=== PATIENT | male | born 2000 | race Caucasian/White ===

== ENCOUNTER 2021-01-11 11:25 | Inpatient (IN) ==
[2021-01-11 12:10] LABS: Hematocrit (blood only) 38.5 % (42-52); Hemoglobin 13.5 g/dL (14.0-18.0); Immature Granulocytes % (auto) 0.5 %; Lymphocytes # (auto) 0.56 K/uL (1.2-3.4); Mean Corpuscular Hemoglobin 30.5 pg (25-34); Mean Corpuscular Hgb Conc 35.1 g/dL (32-36); Mean Corpuscular Volume 87.1 fL (80-100); Monocytes # (auto) 0.46 K/uL (0.11-0.59); Monocytes % (auto) 2.5 %; Neutrophils # (auto) 17.42 K/uL (1.4-6.5); Platelet Count 279 K/uL (130-400); RDW Coefficient of Variation 11.9 % (11.5-14.5); RDW Standard Deviation 38.4 fL (36.4-46.3); Red Blood Count 4.42 M/uL (4.7-6.1); White Blood Count 18.54 K/uL (4.8-10.8)
[2021-01-11 12:32] LABS: Albumin Globulin Ratio 0.7 (0.9-2); Albumin Level 3.6 gm/dl (3.4-5.0); BUN Creatinine Ratio 15.3 (10-20); Calcium 12.4 mg/dl (8.5-10.1); Creatinine Clr Calc Pharmacy 110.5 ml/min; Est GFR (Non-African American) 95.8 ml/min; Globulin 5.5 gm/dl (2.5-4.0); Potassium 4.5 mmol/L (3.5-5.1); Total Protein 9.1 gm/dl (6.4-8.2)
--- NOTE | 2021-01-11 12:32 | XRay Report ---
XR chest 1V portable HISTORY: Fever COMPARISON: None. FINDINGS: No pneumothorax or no pleural effusions. The cardiac silhouette is top normal in size. Ther e are patchy bilateral mid to lower lung zones densities. IMPRESSION: Patchy bilateral mid to lower lung zone densities likely representing a viral pneumonia. ACT 112: Negative or not required by law. Electronically signed by: Tera Lara M.D. 01/11/2021 12:30 PM
[2021-01-11] MEDS ORDERED: SODIUM CHLORIDE 0.9% 500 ML IV ONE (12:37)
[2021-01-11] MEDS ORDERED: ALBUT/IPRATROP 3MG/0.5MG NEB 3 ML VIAL NEB STA (12:37)
[2021-01-11] MEDS ORDERED: dexAMETHasone 6 MG in SYRINGE 0 ML IV ONE (12:37)
[2021-01-11] MEDS ORDERED: SODIUM CHLORIDE 0.9% 1000ML 1,000 ML IV SCH (12:45)
[2021-01-11] MEDS ORDERED: DEXAMETHASONE SOD INJ 4 MG/ML VIAL ONE (13:09)
[2021-01-11] MEDS ORDERED: DEXAMETHASONE SOD INJ 4 MG/ML VIAL IV STA (13:10)
[2021-01-11] MEDS ORDERED: PIPERACILL/TAZOBAC CONSULT ACTIVE PRN (14:12)
[2021-01-11] MEDS ORDERED: ACETAMINOPHEN 1,000 MG/100 ML VIAL IV STA (14:12)
[2021-01-11] MEDS ORDERED: PIPERACILLIN/TAZOBACTAM 4.5 GM/120 ML BAG IV ONE (14:12)
--- NOTE | 2021-01-11 15:21 | Emergency Department Note ---
History of Present Illness General Chief complaint: Fever Stated complaint: NAUSEA VOMITING Source: patient and RN notes reviewed Mode of arrival: ambulatory Limitations: no limitations History of Present Illness Provider complaint: Nausea and vomiting, cough This patient is a 20-year-old male who presents to the emergency department with complaints of subjective fevers, sweats, cough and shortness of breath. Patient admits to vomiting and diarrhea for the last 24 hours. He denies any other symptoms. He denies any other sick contacts in the home. He states he lives with his mother, father and sister, none of whom are ill. He did not receive a Covid vaccine. He denies any recent travel although his mother states he does go to work. He denies any blood in the emesis or stools. Patient denies any pain at this time. Home Medications Medication Instructions Recorded Confirmed Type No Known Home Medications 01/11/21 01/11/21 History Allergies Allergy/AdvReac Type Severity Reaction Status Date / Time codeine Allergy Unknown Unknown Unverified 01/11/21 13:30 Past Med/Surg History Medical History Patient denies medical problems Family History Grandmother Thyroid disease Mom thinks she may have had some parathyroid issue as well but can't remember Other Dyslipidemia Hypertension Social History Smoking Status: Never smoker Tobacco Type: E-cigarettes / Vaping Cigarettes Per Day: tried for a few months and quit- quit 4-5 months ago (~Aug 2020); Hx Alcohol Use: No Hx Substance Use: No Preferred Language: Greek Communication Ability: Effective 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 and A total of 10 systems reviewed and were otherwise negative Physical Exam Vital Signs Vital Signs - 24 hr 01/11/21 11:31 01/11/21 11:46 01/11/21 11:50 Temperature 37.7 C H Temperature Source Skin Pulse Rate 136 H 121 H 117 H Pulse Rate [Right Finger] Pulse Rate from SpO2 Sensor 119 H 115 H Pulse Rhythm Respiratory Rate 24 Respiratory Effort / Characteristics Non-Labored Spontaneous Respiratory Depth Normal Respiratory Pattern Regular Blood Pressure 136/63 Blood Pressure Mean 87 Pulse Oximetry 83 L 91 92 Oxygen Delivery Method Room Air Oxygen Flow Rate Sepsis Recent Fever Within 48 Hours No Sepsis New/Unexplained Change in Mental Status N/A Sepsis Action Taken by Nursing No Action Required 01/11/21 11:59 01/11/21 12:00 01/11/21 12:03 Temperature Temperature Source Pulse Rate 110 H 117 H 111 H Pulse Rate [Right Finger] Pulse Rate from SpO2 Sensor 111 H 117 H Pulse Rhythm Regular Respiratory Rate 20 Respiratory Effort / Characteristics Respiratory Depth Respiratory Pattern Blood Pressure 146/94 H 149/89 H Blood Pressure Mean 111 109 Pulse Oximetry 96 97 93 Oxygen Delivery Method Nasal Cannula Oxygen Flow Rate 2 Sepsis Recent Fever Within 48 Hours Sepsis New/Unexplained Change in Mental Status Sepsis Action Taken by Nursing 01/11/21 12:10 01/11/21 12:20 01/11/21 12:30 Temperature Temperature Source Pulse Rate 107 H 105 H 100 H Pulse Rate [Right Finger] Pulse Rate from SpO2 Sensor 106 H 105 H 96 H Pulse Rhythm Respiratory Rate Respiratory Effort / Characteristics Respiratory Depth Respiratory Pattern Blood Pressure 130/81 Blood Pressure Mean 97 Pulse Oximetry 97 97 97 Oxygen Delivery Method Oxygen Flow Rate Sepsis Recent Fever Within 48 Hours Sepsis New/Unexplained Change in Mental Status Sepsis Action Taken by Nursing 01/11/21 12:40 01/11/21 12:50 01/11/21 12:59 Temperature Temperature Source Pulse Rate 96 H 102 H Pulse Rate [Right Finger] 116 H Pulse Rate from SpO2 Sensor 97 H 100 H Pulse Rhythm Respiratory Rate 22 Respiratory Effort / Characteristics Non-Labored Spontaneous Respiratory Depth Respiratory Pattern Blood Pressure Blood Pressure Mean Pulse Oximetry 98 98 97 Oxygen Delivery Method Nasal Cannula Oxygen Flow Rate 3 Sepsis Recent Fever Within 48 Hours Sepsis New/Unexplained Change in Mental Status Sepsis Action Taken by Nursing 01/11/21 13:00 01/11/21 13:10 01/11/21 13:20 Temperature Temperature Source Pulse Rate 117 H 113 H 120 H Pulse Rate [Right Finger] Pulse Rate from SpO2 Sensor 120 H 115 H 120 H Pulse Rhythm Respiratory Rate 25 H Respiratory Effort / Characteristics Respiratory Depth Respiratory Pattern Blood Pressure 109/80 Blood Pressure Mean 89 Pulse Oximetry 94 96 93 Oxygen Delivery Method Nasal Cannula Oxygen Flow Rate 3 Sepsis Recent Fever Within 48 Hours Sepsis New/Unexplained Change in Mental Status Sepsis Action Taken by Nursing 01/11/21 13:30 01/11/21 13:40 01/11/21 13:50 Temperature Temperature Source Pulse Rate 121 H 129 H 118 H Pulse Rate [Right Finger] Pulse Rate from SpO2 Sensor 123 H 123 H 118 H Pulse Rhythm Respiratory Rate 25 H 19 50 H Respiratory Effort / Characteristics Respiratory Depth Respiratory Pattern Blood Pressure Blood Pressure Mean Pulse Oximetry 90 88 L Oxygen Delivery Method Nasal Cannula Oxygen Flow Rate 3 Sepsis Recent Fever Within 48 Hours Sepsis New/Unexplained Change in Mental Status Sepsis Action Taken by Nursing 01/11/21 14:00 01/11/21 14:10 01/11/21 14:20 Temperature Temperature Source Pulse Rate 111 H 112 H 113 H Pulse Rate [Right Finger] Pulse Rate from SpO2 Sensor 112 H 112 H 112 H Pulse Rhythm Respiratory Rate 44 H Respiratory Effort / Characteristics Respiratory Depth Respiratory Pattern Blood Pressure 129/64 Blood Pressure Mean 85 Pulse Oximetry 93 93 94 Oxygen Delivery Method Oxygen Flow Rate Sepsis Recent Fever Within 48 Hours Sepsis New/Unexplained Change in Mental Status Sepsis Action Taken by Nursing 01/11/21 14:30 01/11/21 14:40 01/11/21 14:50 Temperature Temperature Source Pulse Rate 112 H 114 H 111 H Pulse Rate [Right Finger] Pulse Rate from SpO2 Sensor 114 H 115 H 112 H Pulse Rhythm Respiratory Rate 25 H Respiratory Effort / Characteristics Respiratory Depth Respiratory Pattern Blood Pressure 115/70 Blood Pressure Mean 85 Pulse Oximetry 94 91 93 Oxygen Delivery Method Oxygen Flow Rate Sepsis Recent Fever Within 48 Hours Sepsis New/Unexplained Change in Mental Status Sepsis Action Taken by Nursing 01/11/21 15:00 01/11/21 15:10 01/11/21 15:20 Temperature Temperature Source Pulse Rate 107 H 111 H 106 H Pulse Rate [Right Finger] Pulse Rate from SpO2 Sensor 107 H 111 H 105 H Pulse Rhythm Respiratory Rate Respiratory Effort / Characteristics Respiratory Depth Respiratory Pattern Blood Pressure 139/83 Blood Pressure Mean 101 Pulse Oximetry 94 93 94 Oxygen Delivery Method Oxygen Flow Rate Sepsis Recent Fever Within 48 Hours Sepsis New/Unexplained Change in Mental Status Sepsis Action Taken by Nursing 01/11/21 15:30 01/11/21 15:40 01/11/21 15:50 Temperature Temperature Source Pulse Rate 105 H 100 H 97 H Pulse Rate [Right Finger] Pulse Rate from SpO2 Sensor 105 H 98 H 98 H Pulse Rhythm Respiratory Rate 25 H Respiratory Effort / Characteristics Respiratory Depth Respiratory Pattern Blood Pressure 119/81 Blood Pressure Mean 93 Pulse Oximetry 94 94 94 Oxygen Delivery Method Oxygen Flow Rate Sepsis Recent Fever Within 48 Hours Sepsis New/Unexplained Change in Mental Status Sepsis Action Taken by Nursing Vital signs reviewed. General: Well-appearing 20-year-old male, in no significant distress. HEENT: No scleral icterus, PERRLA, neck supple. Atraumatic. On nasal cannula oxygen Cardiovascular: Regular rate and rhythm, no extra sounds. Pulmonary: Coarse breath sounds bilaterally, slightly increased work of breathing. Abdomen: Soft, nontender, nondistended, positive bowel sounds. Musculoskeletal: Atraumatic, no peripheral edema. Neurologic: Patient awake alert and oriented x 3 Skin: Warm, dry, no rash Course Administered Medications Discontinued Medications Acetaminophen (Acetaminophen 325 Mg Tab) 650 mg PO Q4H PRN PRN Reason: Pain or Fever Stop: 02/10/21 19:59 Last Admin: 01/12/21 11:18 Dose: 650 mg Documented by: [id number] Albuterol (Albut/Ipratrop 3mg/0.5mg Neb 3 Ml Vial) 3 ml NEB NOW STA Stop: 01/11/21 12:38 Last Admin: 01/11/21 12:55 Dose: 3 ml Documented by: [id number] Albuterol (Albuterol 0.083% Nebu Soln 3 Ml Vial) 2.5 mg NEB Q6R [facility] Stop: 02/11/21 00:59 Last Admin: 01/13/21 01:45 Dose: Not Given Documented by: [id number] Admin: 01/12/21 20:08 Dose: 2.5 mg Documented by: [id number] Admin: 01/12/21 13:21 Dose: 2.5 mg Documented by: [id number] Admin: 01/12/21 07:28 Dose: 2.5 mg Documented by: [id number] Admin: 01/12/21 00:01 Dose: Not Given Documented by: [id number] Albuterol (Albuterol Hfa 8 Gm Inhaler) 2 puffs INH Q6 PRN PRN Reason: Dyspnea Stop: 02/10/21 19:59 Last Admin: 01/12/21 00:00 Dose: 2 puffs Documented by: [id number] Azithromycin (Azithromycin 250 Mg Tab) 500 mg PO NOW ONE Stop: 01/11/21 17:32 Last Admin: 01/11/21 22:02 Dose: 500 mg Documented by: [id number] Azithromycin (Azithromycin 250 Mg Tab) 250 mg PO QAM [facility]; Protocol Stop: 01/19/21 08:59 Last Admin: 01/12/21 08:19 Dose: 250 mg Documented by: [id number] Dexamethasone (Dexamethasone Sod Inj 4 Mg/Ml Vial) Confirm Administered Dose 8 mg .ROUTE .STK-MED ONE Stop: 01/11/21 13:10 Last Admin: 01/11/21 13:16 Dose: Not Given Documented by: [id number] Dexamethasone (Dexamethasone Sod Inj 4 Mg/Ml Vial) 6 mg IV NOW STA Stop: 01/11/21 13:11 Last Admin: 01/11/21 13:15 Dose: 6 mg Documented by: [id number] Fentanyl Citrate (Fentanyl Bolus From Bag) 50 mcg IV Q60M PRN PRN Reason: Pain or Agitation Stop: 01/27/21 01:24 Last Admin: 01/13/21 02:10 Dose: 50 mcg Documented by: [id number] Furosemide (Furosemide 40 Mg/4 Ml Vial) 20 mg IV ONE ONE Stop: 01/13/21 04:16 Last Admin: 01/13/21 05:49 Dose: 20 mg Documented by: [id number] Heparin Sodium (Porcine) (Heparin Sod 5,000 Unit/0.5 Ml Vial) 5,000 units SQ Q12 [facility] Stop: 02/10/21 20:59 Last Admin: 01/13/21 08:18 Dose: 5,000 units Documented by: [id number] Admin: 01/12/21 21:55 Dose: Not Given Documented by: [id number] Admin: 01/12/21 08:19 Dose: 5,000 units Documented by: [id number] Admin: 01/11/21 22:02 Dose: 5,000 units Documented by: [id number] Sodium Chloride (Nss) 500 mls @ 999 mls/hr IV .Q31M ONE Stop: 01/11/21 13:07 Last Infusion: 01/11/21 13:21 Dose: 999 mls/hr Documented by: [id number] Admin: 01/11/21 12:45 Dose: 999 mls/hr Documented by: [id number] Sodium Chloride (Nss 1000ml) 1,000 mls @ 125 mls/hr IV .Q8H [facility] Stop: 02/10/21 12:44 Last Infusion: 01/12/21 05:20 Dose: 0 mls/hr Documented by: [id number] Admin: 01/11/21 13:15 Dose: 125 mls/hr Documented by: [id number] Acetaminophen (Ofirmev) 1,000 mg in 100 mls @ 400 mls/hr IV NOW STA Stop: 01/11/21 14:26 Last Infusion: 01/11/21 14:52 Dose: 400 mls/hr Documented by: [id number] Admin: 01/11/21 14:37 Dose: 400 mls/hr Documented by: [id number] Piperacillin Sod/Tazobactam Sod (Zosyn) 4.5 gm in 120 mls @ 240 mls/hr IV NOW ONE Stop: 01/11/21 14:41 Last Infusion: 01/11/21 15:37 Dose: 0 mls/hr Documented by: [id number] Admin: 01/11/21 14:55 Dose: 240 mls/hr Documented by: [id number] Parenteral Electrolytes (Normosol-R) 500 mls @ 999 mls/hr IV .Q31M ONE Stop: 01/11/21 18:00 Last Infusion: 01/12/21 05:20 Dose: 0 mls/hr Documented by: [id number] Admin: 01/11/21 20:10 Dose: 999 mls/hr Documented by: [id number] Ceftriaxone Sodium (Rocephin) 1,000 mg in 50 mls @ 100 mls/hr IV NOW STA Stop: 01/11/21 17:38 Last Admin: 01/12/21 07:11 Dose: Not Given Documented by: [id number] Parenteral Electrolytes (Normosol-R) 1,000 mls @ 125 mls/hr IV .Q8H [facility] Stop: 02/10/21 18:13 Last Infusion: 01/13/21 06:53 Dose: 0 mls/hr Documented by: [id number] Infusion: 01/13/21 05:03 Dose: 0 mls/hr Documented by: [id number] Admin: 01/13/21 01:56 Dose: 125 mls/hr Documented by: [id number] Infusion: 01/13/21 01:56 Dose: 125 mls/hr Documented by: [id number] Admin: 01/12/21 21:42 Dose: 125 mls/hr Documented by: [id number] Infusion: 01/12/21 21:31 Dose: 125 mls/hr Documented by: [id number] Admin: 01/12/21 13:31 Dose: 125 mls/hr Documented by: [id number] Infusion: 01/12/21 13:25 Dose: 125 mls/hr Documented by: [id number] Admin: 01/12/21 05:25 Dose: 125 mls/hr Documented by: [id number] Infusion: 01/12/21 05:25 Dose: 125 mls/hr Documented by: [id number] Admin: 01/11/21 22:01 Dose: 125 mls/hr Documented by: [id number] Piperacillin Sod/Tazobactam (Sod 3.375 gm/ Dextrose) 115 mls @ 28.75 mls/hr IV Q8H [facility]; Protocol Stop: 01/18/21 20:59 Last Infusion: 01/13/21 16:21 Dose: 0 mls/hr Documented by: [id number] Admin: 01/13/21 12:04 Dose: 28.8 mls/hr Documented by: [id number] Infusion: 01/13/21 11:04 Dose: 0 mls/hr Documented by: [id number] Admin: 01/13/21 06:43 Dose: 28.8 mls/hr Documented by: [id number] Infusion: 01/13/21 01:57 Dose: 0 mls/hr Documented by: [id number] Admin: 01/12/21 21:43 Dose: 28.8 mls/hr Documented by: [id number] Infusion: 01/12/21 17:14 Dose: 0 mls/hr Documented by: [id number] Admin: 01/12/21 13:30 Dose: 28.8 mls/hr Documented by: [id number] Infusion: 01/12/21 09:09 Dose: 0 mls/hr Documented by: [id number] Admin: 01/12/21 05:17 Dose: 28.8 mls/hr Documented by: [id number] Infusion: 01/12/21 02:29 Dose: 0 mls/hr Documented by: [id number] Admin: 01/11/21 22:01 Dose: 28.8 mls/hr Documented by: [id number] Potassium Phosphate 21 mmol/ (Sodium Chloride) 507 mls @ 88 mls/hr IV ONE ONE Stop: 01/12/21 15:45 Last Infusion: 01/12/21 17:54 Dose: 0 mls/hr Documented by: [id number] Admin: 01/12/21 11:06 Dose: 88 mls/hr Documented by: [id number] Levofloxacin/Dextrose (Levaquin/D5w) 750 mg in 150 mls @ 100 mls/hr IV Q24H [facility]; Protocol Stop: 01/19/21 17:59 Last Infusion: 01/12/21 19:49 Dose: 0 mls/hr Documented by: [id number] Admin: 01/12/21 17:57 Dose: 100 mls/hr Documented by: [id number] Cisatracurium Besylate 40 mg/ (Sodium Chloride) 100 mls @ 0 mls/hr IV .Q0M [facility]; Protocol Stop: 02/12/21 01:29 Last Titration: 01/13/21 10:35 Dose: 0 mcg/kg/min, 0 mls/hr Documented by: [id number] Titration: 01/13/21 02:29 Dose: 0 mcg/kg/min, 0 mls/hr Documented by: [id number] Admin: 01/13/21 01:56 Dose: 1 mcg/kg/min, 11 mls/hr Documented by: [id number] Cosigned by: [id number] Propofol (Diprivan) 1,000 mg in 100 mls @ 14.004 mls/hr IV .Q7H9M [facility]; Protocol Stop: 01/13/21 11:55 Last Titration: 01/13/21 12:04 Dose: 0 mcg/kg/min, 0 mls/hr Documented by: [id number] Admin: 01/13/21 10:35 Dose: 30 mcg/kg/min, 14 mls/hr Documented by: [id number] Cosigned by: [id number] Titration: 01/13/21 07:27 Dose: 40 mcg/kg/min, 18.7 mls/hr Documented by: [id number] Cosigned by: [id number] Titration: 01/13/21 07:07 Dose: 40 mcg/kg/min, 18.7 mls/hr Documented by: [id number] Cosigned by: [id number] Titration: 01/13/21 02:29 Dose: 40 mcg/kg/min, 18.7 mls/hr Documented by: [id number] Titration: 01/13/21 02:01 Dose: 30 mcg/kg/min, 14 mls/hr Documented by: [id number] Admin: 01/13/21 01:57 Dose: 20 mcg/kg/min, 9.3 mls/hr Documented by: [id number] Cosigned by: [id number] Fentanyl Citrate (Fentanyl Drip) 1,250 mcg in 250 mls @ 30 mls/hr IV .Q8H20M [facility]; Protocol Stop: 01/27/21 01:29 Last Admin: 01/13/21 17:18 Dose: Not Given Documented by: [id number] Admin: 01/13/21 13:27 Dose: 150 mcg/hr, 30 mls/hr Documented by: [id number] Cosigned by: [id number] Titration: 01/13/21 13:27 Dose: 100 mcg/hr, 20 mls/hr Documented by: [id number] Cosigned by: [id number] Titration: 01/13/21 07:07 Dose: 100 mcg/hr, 20 mls/hr Documented by: [id number] Cosigned by: [id number] Titration: 01/13/21 02:29 Dose: 100 mcg/hr, 20 mls/hr Documented by: [id number] Cosigned by: [id number] Admin: 01/13/21 02:01 Dose: 25 mcg/hr, 5 mls/hr Documented by: [id number] Cosigned by: [id number] Dexamethasone 10 mg/ Syringe 2.5 mls @ 1 mls/min IV ONE ONE Stop: 01/13/21 02:32 Last Admin: 01/13/21 02:38 Dose: 1 mls/min Documented by: [id number] Dexamethasone 6 mg/ Syringe 1.5 mls @ 1 mls/min IV DAILY [facility] Stop: 01/24/21 08:59 Last Admin: 01/13/21 08:18 Dose: 1 mls/min Documented by: [id number] Tocilizumab 400 mg/Tocilizumab 200 mg/ Sodium Chloride 100 mls @ 100 mls/hr IV NOW ONE Stop: 01/13/21 03:59 Last Infusion: 01/13/21 04:42 Dose: 0 mls/hr Documented by: [id number] Admin: 01/13/21 03:30 Dose: 100 mls/hr Documented by: [id number] Magnesium Sulfate/Dextrose (Magnesium Sulfate / D5w) 1 gm in 100 mls @ 50 mls/hr IV Q2H [facility] Stop: 01/13/21 07:49 Last Infusion: 01/13/21 10:20 Dose: 0 mls/hr Documented by: [id number] Admin: 01/13/21 08:17 Dose: 50 mls/hr Documented by: [id number] Infusion: 01/13/21 07:26 Dose: 50 mls/hr Documented by: [id number] Admin: 01/13/21 05:26 Dose: 50 mls/hr Documented by: [id number] Midazolam HCl (Versed) 125 mg in 250 mls @ 6 mls/hr IV .[id number] [facility]; Protocol Stop: 02/12/21 11:59 Last Titration: 01/13/21 13:27 Dose: 3 mg/hr, 6 mls/hr Documented by: [id number] Cosigned by: [id number] Admin: 01/13/21 12:03 Dose: 1 mg/hr, 2 mls/hr Documented by: [id number] Cosigned by: [id number] Ioversol (Optiray 320 100ml) 93 ml IV ONCE ONE Stop: 01/12/21 16:15 Last Admin: 01/12/21 16:14 Dose: 93 ml Documented by: [id number] Lactobacillus Acidoph/Casei/Rhamnos (Advanced Probiotic 1250 Mg Capsule) 2 cap PO DAILY [facility] Stop: 02/11/21 08:59 Last Admin: 01/13/21 08:19 Dose: 2 cap Documented by: [id number] Admin: 01/12/21 08:19 Dose: 2 cap Documented by: [id number] Ondansetron HCl (Ondansetron Inj 2 Mg/Ml 2 Ml Vial) 4 mg IV Q6H PRN PRN Reason: Nausea Stop: 02/10/21 19:59 Last Admin: 01/12/21 20:15 Dose: 4 mg Documented by: [id number] Admin: 01/12/21 11:11 Dose: 4 mg Documented by: [id number] Prednisone (Prednisone 20 Mg Tab) 80 mg PO DAILY [facility] Stop: 01/15/21 09:01 Last Admin: 01/13/21 09:43 Dose: Not Given Documented by: [id number] Propofol (Propofol Bolus From Bag) 20 mg IV Q5M PRN PRN Reason: Sedation Stop: 01/16/21 01:24 Last Admin: 01/13/21 02:10 Dose: 20 mg Documented by: [id number] Cosigned by: [id number] Propofol (Propofol Iv Emulsion 10 Mg/Ml 100 Ml Vial) Confirm Administered Dose 1,000 mg IV .STK-MED ONE Stop: 01/13/21 01:30 Last Admin: 01/13/21 01:58 Dose: Not Given Documented by: [id number] Vitamin D (Cholecalciferol 1,000 Units 25 Mcg Tab) 1,000 units PO QAM [facility] Stop: 02/12/21 08:59 Last Admin: 01/13/21 08:19 Dose: 1,000 units Documented by: [id number] Medical Decision Making Differential Diagnosis Reactive airway disease, pneumonia, pneumothorax, COPD, CHF, infections, cardiac ischemia, pulmonary embolism, musculoskeletal, gastrointestinal, as well as other pathologies. Medical Records Attestation: I reviewed the patient's medical records. Home Medications Current Medication List: was personally reviewed by me Laboratory Data Attestation: I reviewed the patient's lab results. Result diagrams: 01/13/21 03:04 01/13/21 03:04 Lab Results 01/11/21 01/11/21 01/11/21 Range/Units 11:58 11:58 13:12 WBC 18.54 H (4.8-10.8) K/uL RBC 4.42 L (4.7-6.1) M/uL Hgb 13.5 L (14.0-18.0) g/dL Hct 38.5 L (42-52) % MCV 87.1 (80-100) fL MCH 30.5 (25-34) pg MCHC 35.1 (32-36) g/dL RDW Std Deviation 38.4 (36.4-46.3) fL RDW Coeff of Vidhya 11.9 (11.5-14.5) % Plt Count 279 (130-400) K/uL MPV 10.0 (7.4-10.4) fL Immature Gran % (Auto) 0.5 % Neut % (Auto) 94.0 % Lymph % (Auto) 3.0 % [place] % (Auto) 2.5 % Eos % (Auto) 0.0 % Baso % (Auto) 0.0 % Neut # (Auto) 17.42 H (1.4-6.5) K/uL Lymph # (Auto) 0.56 L (1.2-3.4) K/uL [place] # (Auto) 0.46 (0.11-0.59) K/uL Eos # (Auto) 0.00 (0-0.5) K/uL Baso # (Auto) 0.00 (0-0.2) K/uL Immature Gran # (Auto) 0.10 H (0.00-0.02) K/uL Sodium 136 (136-145) mmol/L Potassium 4.5 (3.5-5.1) mmol/L Chloride 100 (98-107) mmol/L Carbon Dioxide 30 (21-32) mmol/L Anion Gap 6.0 (3-11) BUN 17 (7-18) mg/dl Creatinine 1.11 (0.6-1.4) mg/dl Est Cr Clr Drug Dosing 110.5 ml/min Est GFR ( Amer) 111.0 ml/min Est GFR (Non-Af Amer) 95.8 ml/min BUN/Creatinine Ratio 15.3 (10-20) Glucose 130 H (70-99) mg/dl Lactate (0.4-2.0) mmol/L Calcium 12.4 H* (8.5-10.1) mg/dl Ionized Calcium mmol/L Phosphorus (2.5-4.9) mg/dl Total Bilirubin 2.0 H (0.2-1) mg/dl AST 30 (15-37) U/L ALT 20 (12-78) U/L Alkaline Phosphatase 87 (45-117) U/L C-Reactive Protein (0-0.29) mg/dl Total Protein 9.1 H (6.4-8.2) gm/dl Albumin 3.6 (3.4-5.0) gm/dl Globulin 5.5 H (2.5-4.0) gm/dl Albumin/Globulin Ratio 0.7 L (0.9-2) Procalcitonin (0-0.5) ng/ml TSH (0.300-4.500) uIu/ml PTH Intact (18.4-80.1) pg/ml COVID-19 Eval Order Covid19 at [facility] SARS-CoV-2 (PCR) (Negative) Influ A Molecular Assay (Negative) Influ B Molecular Assay (Negative) Mycoplasma pneumon IgM (<770) U/mL RSV (Molecular) (Negative) 01/11/21 01/11/2121 Range/Units 13:12 14:39 14:52 WBC (4.8-10.8) K/uL RBC (4.7-6.1) M/uL Hgb (14.0-18.0) g/dL Hct (42-52) % MCV (80-100) fL MCH (25-34) pg MCHC (32-36) g/dL RDW Std Deviation (36.4-46.3) fL RDW Coeff of Vidhya (11.5-14.5) % Plt Count (130-400) K/uL MPV (7.4-10.4) fL Immature Gran % (Auto) % Neut % (Auto) % Lymph % (Auto) % [place] % (Auto) % Eos % (Auto) % Baso % (Auto) % Neut # (Auto) (1.4-6.5) K/uL Lymph # (Auto) (1.2-3.4) K/uL [place] # (Auto) (0.11-0.59) K/uL Eos # (Auto) (0-0.5) K/uL Baso # (Auto) (0-0.2) K/uL Immature Gran # (Auto) (0.00-0.02) K/uL Sodium (136-145) mmol/L Potassium (3.5-5.1) mmol/L Chloride (98-107) mmol/L Carbon Dioxide (21-32) mmol/L Anion Gap (3-11) BUN (7-18) mg/dl Creatinine (0.6-1.4) mg/dl Est Cr Clr Drug Dosing ml/min Est GFR ( Amer) ml/min Est GFR (Non-Af Amer) ml/min BUN/Creatinine Ratio (10-20) Glucose (70-99) mg/dl Lactate 1.7 (0.4-2.0) mmol/L Calcium (8.5-10.1) mg/dl Ionized Calcium mmol/L Phosphorus (2.5-4.9) mg/dl Total Bilirubin (0.2-1) mg/dl AST (15-37) U/L ALT (12-78) U/L Alkaline Phosphatase (45-117) U/L C-Reactive Protein (0-0.29) mg/dl Total Protein (6.4-8.2) gm/dl Albumin (3.4-5.0) gm/dl Globulin (2.5-4.0) gm/dl Albumin/Globulin Ratio (0.9-2) Procalcitonin (0-0.5) ng/ml TSH (0.300-4.500) uIu/ml PTH Intact 73.1 (18.4-80.1) pg/ml COVID-19 Eval Order SARS-CoV-2 (PCR) NEGATIVE (Negative) Influ A Molecular Assay (Negative) Influ B Molecular Assay (Negative) Mycoplasma pneumon IgM (<770) U/mL RSV (Molecular) (Negative) 01/11/21 01/11/21 01/11/21 Range/Units 15:52 16:07 17:05 WBC (4.8-10.8) K/uL RBC (4.7-6.1) M/uL Hgb (14.0-18.0) g/dL Hct (42-52) % MCV (80-100) fL MCH (25-34) pg MCHC (32-36) g/dL RDW Std Deviation (36.4-46.3) fL RDW Coeff of Vidhya (11.5-14.5) % Plt Count (130-400) K/uL MPV (7.4-10.4) fL Immature Gran % (Auto) % Neut % (Auto) % Lymph % (Auto) % [place] % (Auto) % Eos % (Auto) % Baso % (Auto) % Neut # (Auto) (1.4-6.5) K/uL Lymph # (Auto) (1.2-3.4) K/uL [place] # (Auto) (0.11-0.59) K/uL Eos # (Auto) (0-0.5) K/uL Baso # (Auto) (0-0.2) K/uL Immature Gran # (Auto) (0.00-0.02) K/uL Sodium (136-145) mmol/L Potassium (3.5-5.1) mmol/L Chloride (98-107) mmol/L Carbon Dioxide (21-32) mmol/L Anion Gap (3-11) BUN (7-18) mg/dl Creatinine (0.6-1.4) mg/dl Est Cr Clr Drug Dosing ml/min Est GFR ( Amer) ml/min Est GFR (Non-Af Amer) ml/min BUN/Creatinine Ratio (10-20) Glucose (70-99) mg/dl Lactate (0.4-2.0) mmol/L Calcium (8.5-10.1) mg/dl Ionized Calcium mmol/L Phosphorus (2.5-4.9) mg/dl Total Bilirubin (0.2-1) mg/dl AST (15-37) U/L ALT (12-78) U/L Alkaline Phosphatase (45-117) U/L C-Reactive Protein (0-0.29) mg/dl Total Protein (6.4-8.2) gm/dl Albumin (3.4-5.0) gm/dl Globulin (2.5-4.0) gm/dl Albumin/Globulin Ratio (0.9-2) Procalcitonin (0-0.5) ng/ml TSH (0.300-4.500) uIu/ml PTH Intact (18.4-80.1) pg/ml COVID-19 Eval Order SARS-CoV-2 (PCR) (Negative) Influ A Molecular Assay Negative (Negative) Influ B Molecular Assay Negative (Negative) Mycoplasma pneumon IgM 154 (<770) U/mL RSV (Molecular) Negative (Negative) 01/11/21 01/11/21 01/11/21 Range/Units 17:05 17:05 17:05 WBC (4.8-10.8) K/uL RBC (4.7-6.1) M/uL Hgb (14.0-18.0) g/dL Hct (42-52) % MCV (80-100) fL MCH (25-34) pg MCHC (32-36) g/dL RDW Std Deviation (36.4-46.3) fL RDW Coeff of Vidhya (11.5-14.5) % Plt Count (130-400) K/uL MPV (7.4-10.4) fL Immature Gran % (Auto) % Neut % (Auto) % Lymph % (Auto) % [place] % (Auto) % Eos % (Auto) % Baso % (Auto) % Neut # (Auto) (1.4-6.5) K/uL Lymph # (Auto) (1.2-3.4) K/uL [place] # (Auto) (0.11-0.59) K/uL Eos # (Auto) (0-0.5) K/uL Baso # (Auto) (0-0.2) K/uL Immature Gran # (Auto) (0.00-0.02) K/uL Sodium (136-145) mmol/L Potassium (3.5-5.1) mmol/L Chloride (98-107) mmol/L Carbon Dioxide (21-32) mmol/L Anion Gap (3-11) BUN (7-18) mg/dl Creatinine (0.6-1.4) mg/dl Est Cr Clr Drug Dosing ml/min Est GFR ( Amer) ml/min Est GFR (Non-Af Amer) ml/min BUN/Creatinine Ratio (10-20) Glucose (70-99) mg/dl Lactate (0.4-2.0) mmol/L Calcium (8.5-10.1) mg/dl Ionized Calcium 1.50 mmol/L Phosphorus 1.9 L (2.5-4.9) mg/dl Total Bilirubin (0.2-1) mg/dl AST (15-37) U/L ALT (12-78) U/L Alkaline Phosphatase (45-117) U/L C-Reactive Protein 37.20 H (0-0.29) mg/dl Total Protein (6.4-8.2) gm/dl Albumin (3.4-5.0) gm/dl Globulin (2.5-4.0) gm/dl Albumin/Globulin Ratio (0.9-2) Procalcitonin 3.25 H (0-0.5) ng/ml TSH 0.767 (0.300-4.500) uIu/ml PTH Intact (18.4-80.1) pg/ml COVID-19 Eval Order SARS-CoV-2 (PCR) (Negative) Influ A Molecular Assay (Negative) Influ B Molecular Assay (Negative) Mycoplasma pneumon IgM (<770) U/mL RSV (Molecular) (Negative) Imaging Data Radiologist's Impression: Chest X-Ray 01/11/21 12:03 XR chest 1V portable HISTORY: Fever COMPARISON: None. FINDINGS: No pneumothorax or no pleural effusions. The cardiac silhouette is top normal in size. There are patchy bilateral mid to lower lung zones densities. IMPRESSION: Patchy bilateral mid to lower lung zone densities likely representing a viral pneumonia. ACT 112: Negative or not required by law. Electronically signed by: Tera Lara M.D. 01/11/2021 12:30 PM ECG Data Attestation: I personally reviewed and interpreted this ECG as follows: Indication: + SOB/dyspnea Rate (beats per minute): 115 Rhythm: + sinus tachycardia ECG Intervals/blocks: + Normal QRS and + Normal QT-c ECG [place]: + Normal ECG ST segments: + Normal ST segments Blood Pressure Blood Pressure Findings: Elevated blood pressure Blood Pressure Disposition: further management by hospitalist MDM Narrative This patient was evaluated and appeared to be in no significant distress. IV access was obtained and laboratory work was drawn. An order for cardiac monitoring was placed and the patient is noted to be in a sinus tachycardia 121 bpm. Patient was hydrated with normal saline solution. Laboratory work reveals a hypercalcemia of 12. EKG reveals a sinus tachycardia without evidence of acute ischemia or dysrhythmia otherwise. Chest x-ray was performed and reveals bilateral pulmonary infiltrates consistent with viral etiology. Covid swab PCR is negative. Patient's WBC is elevated at 18.5. He was given 6 mg of IV dexamethasone due to concern for the viral pneumonitis. He was also medicated with IV Zosyn and blood cultures were sent. Patient remained stable on nasal cannula oxygen. A DuoNeb treatment was administered. Case was discussed with the hospitalist service. Patient and mother at the bedside were informed of the findings and plan and agreed. Impression & Plan Bilateral pulmonary infiltrates on CXR, Hypercalcemia, Hypoxia, Tachycardia Discharge Plan Visit Data Chief Complaint: Fever Stated Complaint: NAUSEA VOMITING ED Provider: Deanna Guadalupe Discharge Problem: Bilateral pulmonary infiltrates on CXR, Hypercalcemia, Hypoxia, Tachycardia Patient Disposition: Admitted As Inpatient Condition: Critical Discharge Instructions Interventions: ED Discharge Assessment Last Done: 01/11/21 19:25
[2021-01-11 16:23] LABS: Influenza A virus by PCR Negative (Negative); Influenza B virus by PCR Negative (Negative)
[2021-01-11] MEDS ORDERED: cefTRIAXone SODIUM 1,000 MG/50 ML BAG IV STA (17:09)
--- NOTE | 2021-01-11 17:19 | History & Physical Report ---
Date of Service January 11, 2021 Assessment & Plan (1) Pneumonia: Bilateral patchy infiltrations. Cultures pending, no eos with CBC - DDX: Bacterial atypical vs. Viral vs. COVID-19 - elevated WBC, radiological findings as above, nonproductive cough, hypoxia/oxygen use - COVID 19 test negative on admission- Patient will be admitted with isolation precautions as PUI - RSV, Mycoplasma, Legionella antigen, pending - Flu A, B negative with COVID swab - Continue Zosyn- add Azithromycin PO for atypical coverage - Albuterol scheduled nebs q6, Albuterol PRN for cough/dyspnea - Titrate oxygen to keep SPO2 >92% - Patient educated on self proning in relation to possible COVID - Dexamethasone given in the EMD- Will not continue this at this time secondary to possible BAL if failure to improve - IF hypoxia worsens with clinical picture will add steroids back on (2) Sepsis: SIRS- 3; qSOFA- 1 - WBC 18.54, neutrophil predominant, with leukopenia- Platelet count 279 - Hyperglycemia- likely stress response at this time - NO evidence of other organ dysfunction- Lactate negative - CRP 37.2 - PCT pending - Blood cultures pending (3) Hypercalcemia: Likely related to hypovolemia- iCA will guide therapy - No parasthesias, muscle weakness, - Check iCA as this is the biologically active form and better representation overall - 500ml of Normosol- followed with Normosol at 125- this should resolve with repleting intravascular volume - TSH pending - PTH pending, PO4 pending (expect low with decrease oral intake) Mother endorses his grandmother had thyroid nodules and might have had some parathyroid issues as well. - As above PTH pending- would expect chronically elevated calcium levels if this was underlying- no trend available, but endorses he never noted this prior (4) Hypovolemia: As above- clinically hypovolemia with increase in insensible losses with tachypnea, fevers - continue isotonic volume resuscitation - Patient void still pending - Remains tachycardic (5) Elevated glucose: Likely stress response to acute illness - denies history of such - Follow trend - Notify if >180 History of Present Illness Primary Care Provider: Chris Landon 20 YOM with no significant medical history. Patient not on any medications at home. Patient comes to the emergency room today for not feeling well since (Jan 08, 2021). He started having fevers on associated with nausea and GI upset and vomitting. He denies that he had any diarrhea. This progressed to a dry non-productive cough, which at times he felt short of breath after. He denies not feeling much shortness of breath associated with his symptoms. The feeling of hot and cold has remained constant and he can not notice a cyclical change. He reports maybe one day of mild myalgias. He works as a construction equipment technician, no-one at work has been feeling ill and he was last there on Tuesday, where he left early. He lives at home with his parents- all of which have not been feeling ill and also have not been vaccinated for COVID-19. The patient does have dogs, cats, horses at home and water at home is supplied via a well. He has not removed any ticks from the dogs in a while, but reports he had a tick crawling on him sometime last week that was not embedded. Patient stopped vaping over 4-5 months ago, and does not smoke or endorse other drugs. In the EMD he was noted to be tachycardic, tachypneic, and hypoxic to 83% noted on arrival. He was placed on NC and quickly recovered. He had routine labs drawn, to include blood cultures and COVID-19 test. CXR done. ECG performed, was given 500ml bolus of saline followed by 0.9% Saline at 125ml/hour. His CXR was notable for bilateral mid lower lung zone patchy densities. His blood work was notable for a leukocytosis with elevated neutrophils and lymphopenia as well as hyperglycemia and hypercalcemia (12.4). He has not voided since being in the [facility]. Will provide another bolus of crystalloid and follow hemodynamics. Allergies Allergy/AdvReac Type Severity Reaction Status Date / Time codeine Allergy Unknown Unknown Unverified 01/11/21 13:30 Home Medications Medication Instructions Recorded Confirmed Type No Known Home Medications 01/11/21 01/11/21 History Past Med/Surg History Medical History Patient denies medical problems Family History (Updated 01/11/21 @ 18:07 by SEAN Tariq) Grandmother Thyroid disease Mom thinks she may have had some parathyroid issue as well but can't r emember Other Dyslipidemia Hypertension Social History (Updated 01/11/21 @ 17:35 by SEAN Tariq) Smoking Status: Never smoker Tobacco Type: E-cigarettes / Vaping Cigarettes Per Day: tried for a few months and quit- quit 4-5 months ago (~Aug 2020); Hx Alcohol Use: No Hx Substance Use: No Preferred Language: Spanish Communication Ability: Effective Negotiator Required: No Beliefs That Will Affect Care: None marital status: Single Current Living Situation: Family Current Living Situation Comment: Mother, father and sister current occupational status: employed Other Information That Helps Us Care for You: No Feels Safe at Home: Yes Safety Concerns: Feels Safe At This Time Assistive Devices: Contacts Review of Systems Review of Systems: REVIEW OF SYSTEMS: Constitutional: (+) fever, sweats, chills Eyes: No diplopia, no worsening or blurred vision ENT: normal hearing, no trouble swallowing Respiratory: (+) cough, sputum, dyspnea exertion; NO dyspnea at rest Cardiovascular: No chest pain, tightness or palpitations Abdomen: (+) nausea and upset stomach, vomiting, NO diarrhea or constipation Musculoskeletal: No joint pain, calf pain, swelling Neurologic: No weakness, numbness/tingling, or balance problems Psychiatric: No anxiety or depression Skin: No rash or itch Physical Exam Physical Exam: PHYSICAL EXAM: General: awake, alert, fatigued looking Head: Normocephalic, atraumatic ENT: PERRL, EOMI, no pharyngeal exudate, mucous membranes dry, Neuro: AAO x 3, speech clear and appropriate, strength intact bilaterally 5/5, sensation intact and equal all extremities and dermatomes, no pronator drift Chest: equal rise and fall of the chest, no accessory muscle use, no heaves or thrills, crackles in bases, +egophony in left lateral and bilateral base, on 3LNC, Cardiac: Regular rate and rhythm, telemetry reviewed, skin warm dry, cap refill <3 seconds, peripheral pulses +2 no JVD, no murmur, no JVD, no edema GI: NABS x 4 quadrants, soft, nontender to palpation, no rebound, guarding or tenderness : void pending, no pain, no CVA tenderness, Extremities: Normal inspection, no peripheral edema or erythema, calfs nontender to palpation Psych: Normal mood and affect Skin: no rash or erythema Results & Data Results & Data ([facility]) Vital Signs (Past 12 Hours) Vital Signs Temp Pulse Pulse Resp BP Pulse Ox 01/11/21 15:50 97 H 94 01/11/21 15:40 100 H 94 01/11/21 15:30 105 H 25 H 119/81 94 01/11/21 15:20 106 H 94 01/11/21 15:10 111 H 93 01/11/21 15:00 107 H 139/83 94 01/11/21 14:50 111 H 93 01/11/21 14:40 114 H 25 H 91 01/11/21 14:30 112 H 115/70 94 01/11/21 14:20 113 H 94 01/11/21 14:10 112 H 93 01/11/21 14:00 111 H 44 H 129/64 93 01/11/21 13:50 118 H 50 H 88 L 01/11/21 13:40 129 H 19 01/11/21 13:30 121 H 25 H 90 01/11/21 13:20 120 H 93 01/11/21 13:10 113 H 25 H 96 01/11/21 13:00 117 H 109/80 94 01/11/21 12:59 116 H 22 97 01/11/21 12:50 102 H 98 01/11/21 12:40 96 H 98 01/11/21 12:30 100 H 130/81 97 01/11/21 12:20 105 H 97 01/11/21 12:10 107 H 97 01/11/21 12:03 111 H 20 93 01/11/21 12:00 117 H 149/89 H 97 01/11/21 11:59 110 H 146/94 H 96 01/11/21 11:50 117 H 92 01/11/21 11:46 121 H 91 01/11/21 11:31 37.7 C H 136 H 24 136/63 83 L Laboratory Results Abnormal lab results 01/11/21 01/11/21 Range/Units 11:58 11:58 WBC 18.54 H (4.8-10.8) K/uL RBC 4.42 L (4.7-6.1) M/uL Hgb 13.5 L (14.0-18.0) g/dL Hct 38.5 L (42-52) % Neut # (Auto) 17.42 H (1.4-6.5) K/uL Lymph # (Auto) 0.56 L (1.2-3.4) K/uL Immature Gran # (Auto) 0.10 H (0.00-0.02) K/uL Glucose 130 H (70-99) mg/dl Calcium 12.4 H* (8.5-10.1) mg/dl Total Bilirubin 2.0 H (0.2-1) mg/dl Total Protein 9.1 H (6.4-8.2) gm/dl Globulin 5.5 H (2.5-4.0) gm/dl Albumin/Globulin Ratio 0.7 L (0.9-2) Diagnostic Findings Chest X-Ray 01/11/21 12:03 XR chest 1V portable HISTORY: Fever COMPARISON: None. FINDINGS: No pneumothorax or no pleural effusions. The cardiac silhouette is top normal in size. There are patchy bilateral mid to lower lung zones densities. IMPRESSION: Patchy bilateral mid to lower lung zone densities likely representing a viral pneumonia. ACT 112: Negative or not required by law. Electronically signed by: Tera Lara M.D. 01/11/2021 12:30 PM Medications Administered Sodium Chloride (Nss 1000ml) 1,000 mls @ 125 mls/hr IV .Q8H CRISTI Stop: 02/10/21 12:44 Last Admin: 01/11/21 13:15 Dose: 125 mls/hr Documented by: [id number] Discontinued Medications Albuterol (Albut/Ipratrop 3mg/0.5mg Neb 3 Ml Vial) 3 ml NEB NOW STA Stop: 01/11/21 12:38 Last Admin: 01/11/21 12:55 Dose: 3 ml Documented by: [id number] Dexamethasone (Dexamethasone Sod Inj 4 Mg/Ml Vial) Confirm Administered Dose 8 mg .ROUTE .STK-MED ONE Stop: 01/11/21 13:10 Last Admin: 01/11/21 13:16 Dose: Not Given Documented by: [id number] Dexamethasone (Dexamethasone Sod Inj 4 Mg/Ml Vial) 6 mg IV NOW STA Stop: 01/11/21 13:11 Last Admin: 01/11/21 13:15 Dose: 6 mg Documented by: [id number] Sodium Chloride (Nss) 500 mls @ 999 mls/hr IV .Q31M ONE Stop: 01/11/21 13:07 Last Infusion: 01/11/21 13:21 Dose: 999 mls/hr Documented by: [id number] Admin: 01/11/21 12:45 Dose: 999 mls/hr Documented by: [id number] Acetaminophen (Ofirmev) 1,000 mg in 100 mls @ 400 mls/hr IV NOW STA Stop: 01/11/21 14:26 Last Infusion: 01/11/21 14:52 Dose: 400 mls/hr Documented by: [id number] Admin: 01/11/21 14:37 Dose: 400 mls/hr Documented by: [id number] Piperacillin Sod/Tazobactam Sod (Zosyn) 4.5 gm in 120 mls @ 240 mls/hr IV NOW ONE Stop: 01/11/21 14:41 Last Infusion: 01/11/21 15:37 Dose: 0 mls/hr Documented by: [id number] Admin: 01/11/21 14:55 Dose: 240 mls/hr Documented by: [id number] ECG Additional Comments: Sinus tachycardia Otherwise normal ECG No previous ECGs available Code Status & VTE Plan Code Status CODE: FULL VTE: SCDs, Heparin 5000 units subq BID Supervising Physician Co-Signing Physician Notes Attending Attestation & Admission Note: Pt seen/examined, chart reviewed, care plan d/w SEAN Hinton. I agree w/ the lee components of his documentation. 20yo male - healthy with no PMH - presenting with several days of fevers, chills, N/V, cough and dyspnea. No prior h/o COVID-19 infection. Has not been vaccinated. Upon ER arrival today was hypoxic, and has required NC O2 since, with most O2 sa ts low 90s. 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 No obvious sick contacts. PMH/PSH/allergies/meds/sochx/famhx - reviewed vitals - febrile, tachypneic, o2 sats low90s on NC o2 gen - ill-appearing, mild tachypnea, able to speak in full sentences mouth - MM modestly dry neck - no JVD heart - tachy, s1 s2 lungs - poor air movement all lung segments; hint of end-exp wheeze b/l; crackles both bases; tachypnea, scant subcostal retractions abd - soft NT; no HSM ext - warm, no edema labs - WBC 18.5 procal 3.2 total calcium 12.4 CRP 37 Cr 1.1 t.bili 2 cxr reviewed EKG - sinus tach A/P: 1. acute hypoxic respiratory failure 2nd to b/l basilar pneumonia. 2. sepsis 2nd to above. 3. severe hypercalcemia. etiology of pneumonia uncertain. history & clinical features are concerning for COVID-19 but testing today is negative. is at high risk of COVID- parents unvaccinated, he is unvaccinated. COVID test could be falsely negative - he is still early in disease course. differential - high wbc, procal suggest bacterial source - consider legionella, mycoplasma, strep pneumoniae, gram negatives (no risk factors for latter however). viral still possible - COVID still in differential. agree with continuing airborne precautions despite negative COVID. would REPEAT THE COVID TEST ON TUESDAY OR TUESDAY. If negative - and depending on clinical course - could d/c isolation then. agree w/ mycoplasma, legionella testing. add bronchodilators. prone and pulmonary toilet. zosyn/zithromax - narrow when able. hypercalcemia -- if phos level is low, and if iPTH is high, this is c/w primary hyperparathyroidism. check 25-OH vit D in am to be complete. keep sarcoid in differential for pulmonary infiltrates & hypercalcemia. pt's mother updated during my visit. Wero Mejía MD PG Care Time/CCT Total # of Minutes Spent Total Time Spent with Patient: Total time spent is greater than 50% in coordination of care (as documented) at patient's floor/unit and/or counseling patient: Coding Level of Care Code 76166 Initial Inpt Care Lvl 3 Diagnoses Pneumonia J18.9 Laterality: bilateral Lung location: lower lobe of lung Pneumonia type: due to unspecified organism Sepsis A41.9 Sepsis acute organ dysfunction status: without acute organ dysfunction Sepsis type: sepsis due to unspecified organism Hypercalcemia E83.52 Hypovolemia E86.1 Elevated glucose R73.09 (1) Sepsis Sepsis acute organ dysfunction status: without acute organ dysfunction Sepsis type: sepsis due to unspecified organism Qualified Code(s): A41.9 - Sepsis, unspecified organism (2) Pneumonia Laterality: bilateral Lung location: lower lobe of lung Pneumonia type: due to unspecified organism Qualified Code(s): J18.9 - Pneumonia, unspecified organism
--- NOTE | 2021-01-11 17:26 | Electrocardiogram Report ---
Test Reason : Blood Pressure : / mmHG Vent. Rate : 115 BPM Atrial Rate : 115 BPM P-R Int : 154 ms QRS Dur : 092 ms QT Int : 308 ms P-R-T Axes : 041 047 013 degrees QTc Int : 426 ms Sinus tachycardia Otherwise normal ECG No previous ECGs available Confirmed by Mg Ku ([id number]) on 01/11/2021 5:26:04 PM Referred By: REFERRED SELF Confirmed By:Khoi Ku
[2021-01-11] MEDS ORDERED: NORMOSOL-R 500 ML IV ONE (17:30)
[2021-01-11] MEDS ORDERED: AZITHROMYCIN 250 MG TAB PO ONE (17:31)
[2021-01-11 17:46] LABS: C Reactive Protein 37.2 mg/dl (0-0.29); Phosphorus 1.9 mg/dl (2.5-4.9); Thyroid Stimulating Hormone 0.767 uIu/ml (0.300-4.500)
[2021-01-11] MEDS ORDERED: SUCCINYLCHOLINE CHLORIDE 20 MG/ML 10 ML VIAL IV ONE (17:54)
[2021-01-11] MEDS ORDERED: fentaNYL citrate 100 MCG/2 ML VIAL IV ONE (17:54)
[2021-01-11] MEDS ORDERED: ROCURONIUM BROMIDE 10 MG/ML 5 ML VIAL IV ONE (17:54)
[2021-01-11] MEDS ORDERED: ACETAMINOPHEN 325 MG TAB PO PRN (20:00)
[2021-01-11] MEDS: PIPERACILLIN/TAZOBACTAM 3.375 GM in DEXTROSE 5% 100 ML IV SCH (22:01)
[2021-01-11] MEDS: NORMOSOL-R 1,000 ML IV SCH (22:01)
[2021-01-11] MEDS: HEPARIN SOD 5,000 UNIT/0.5 ML VIAL SQ SCH (22:02)
[2021-01-12] MEDS: ALBUTEROL HFA 8 GM INHALER INH PRN
[2021-01-12] MEDS: ALBUTEROL 0.083% NEBU SOLN 3 ML VIAL NEB SCH ×4 (00:01→20:08)
[2021-01-12] MEDS: PIPERACILLIN/TAZOBACTAM 3.375 GM in DEXTROSE 5% 100 ML IV SCH ×3 (05:17→21:43)
[2021-01-12] MEDS: NORMOSOL-R 1,000 ML IV SCH ×3 (05:25→21:42)
[2021-01-12 06:20] LABS: Hematocrit (blood only) 34.9 % (42-52); Immature Granulocytes # (auto) 0.04 K/uL (0.00-0.02); Immature Granulocytes % (auto) 0.2 %; Lymphocytes # (auto) 0.55 K/uL (1.2-3.4); Lymphocytes % (auto) 3.3 %; Mean Corpuscular Hemoglobin 30.2 pg (25-34); Mean Corpuscular Hgb Conc 34.4 g/dL (32-36); Mean Corpuscular Volume 87.9 fL (80-100); Mean Platelet Volume 9.8 fL (7.4-10.4); Monocytes # (auto) 0.38 K/uL (0.11-0.59); Monocytes % (auto) 2.3 %; Neutrophils # (auto) 15.66 K/uL (1.4-6.5); Neutrophils % (auto) 94.2 %; Platelet Count 318 K/uL (130-400); RDW Coefficient of Variation 12.1 % (11.5-14.5); RDW Standard Deviation 39.1 fL (36.4-46.3); Red Blood Count 3.97 M/uL (4.7-6.1); White Blood Count 16.63 K/uL (4.8-10.8)
[2021-01-12 07:01] LABS: BUN Creatinine Ratio 19.9 (10-20); Blood Urea Nitrogen 16 mg/dl (7-18); Calcium 11.4 mg/dl (8.5-10.1); Carbon Dioxide 29 mmol/L (21-32); Chloride 106 mmol/L (98-107); Creatinine Clr Calc Pharmacy 153.4 ml/min; Est GFR (African American) > 150.0 ml/min; Est GFR (Non-African American) 129.5 ml/min; Glucose 112 mg/dl (70-99); Phosphorus 1.7 mg/dl (2.5-4.9); Potassium 3.9 mmol/L (3.5-5.1); Sodium 138 mmol/L (136-145)
[2021-01-12] MEDS: HEPARIN SOD 5,000 UNIT/0.5 ML VIAL SQ SCH ×2 (08:19→21:55)
[2021-01-12] MEDS: ADVANCED PROBIOTIC 1250 MG CAPSULE PO SCH (08:19)
[2021-01-12] MEDS ORDERED: AZITHROMYCIN 250 MG TAB PO SCH (09:00)
[2021-01-12] MEDS ORDERED: POTASSIUM PHOS 3 MMOL/1 ML INFUSION IV STA (09:38)
[2021-01-12] MEDS ORDERED: POTASSIUM PHOSPHATE 21 MMOL in SODIUM CHLORIDE 0.9% 500 ML IV ONE (10:00)
[2021-01-12] MEDS: ONDANSETRON INJ 2 MG/ML 2 ML VIAL IV PRN ×2 (11:11→20:15)
[2021-01-12] MEDS ORDERED: OPTIRAY 320 100ml IV ONE (16:14)
--- NOTE | 2021-01-12 16:36 | CT Scan Report ---
CT SCAN OF THE CHEST WITH IV CONTRAST CLINICAL HISTORY: Pneumonia. Hypoxia. COMPARISON STUDY: Chest x-ray dated 01/11/2021. TECHNIQUE: Following the IV administration of 93 cc of Optiray 320, CT scan of the thorax was perform ed from the thoracic inlet to the upper abdomen. Images are reviewed in the axial, sagittal, and jennifer nal planes. IV contrast was administered without complication. A dose lowering technique was utilize d adhering to the principles of ALARA. The examination is degraded by motion artifact. CT DOSE: 463.56 mGycm FINDINGS: Thyroid: Imaged portions of the thyroid gland are normal in size and attenuation. Thoracic aorta: The thoracic aorta is normal in caliber and demonstrates standard 3-vessel arch anato my. No dissection is seen. Pulmonary vasculature: The pulmonary trunk is normal in caliber. There are no filling defects identif ied in the central pulmonary vessels to indicate pulmonary embolus. Note that this examination was no t protocoled for evaluation of the pulmonary arteries. Heart: The heart is top normal in size and without pericardial effusion. Lungs and pleural spaces: Multifocal groundglass consolidation is seen throughout both lungs. This is most confluent at the lung bases. No pleural effusion is identified. The trachea and central airways are clear. Mediastinum: There are prominent mediastinal nodes. Prevascular nodes measure up to 6 mm short axis a subcarinal node measures 15 mm in short axis. Ayanna: Mildly enlarged hilar nodes measure up to 12 mm in short axis. Axillae: There is no axillary lymphadenopathy. Upper abdomen: Partially visualized upper abdominal viscera is within normal limits. Skeletal structures: No lytic or blastic bony lesions are seen. IMPRESSION: 1. Multifocal airspace consolidation is seen throughout both lungs and is compatible with the reporte d history of pneumonia. Superimposed pulmonary hemorrhage or pulmonary edema would be impossible to e xclude and clinical correlation will be essential. Radiographic follow-up to resolution is recommende d. 2. Mildly enlarged mediastinal and hilar lymph nodes are likely reactive. 3. No pleural effusion. 4. Additional findings as above. ACT 112: Negative or not required by law. Electronically signed by: Myles Ann M.D. 01/12/2021 4:35 PM
--- NOTE | 2021-01-12 17:24 | Hospitalist Progress Note ---
Date of Service January 12, 2021 Assessment & Plan (1) Acute respiratory failure with hypoxia: due to diffuse, multifocal pneumonia as seen on CXR and CT chest oxygen needs increasing from 4L to 12L mask this evening encourage prone position if possible certainly at risk of developing ARDS treating bacterial infection with Levaquin and Zosyn COVID negative x 2 sets defer Biofire testing to pulmonology Legionella pending, mycoplasma pending consult pulmonology in this young patient with severe disease (2) Pneumonia: Bilateral patchy infiltrations. CT chest with more detail, shows bilateral pneumonia, consolidations CRP markedly elevated in 30's, procalcitonin up at 3 could be viral vs bacterial rapid onset of symptoms on night (01/08), no one else in family is ill COVID is NEGATIVE twice (on 01/11 and repeat on 01/12) Flu A/B negative legionella, mycoplasma, RSV pending he does not smoke, he admits to vaping a long time ago, was over a year ago that he quit WBC down very slightly, low grade temperature consult pulmonology as he is at high risk of getting worse might need bronchoscopy for work up (3) Sepsis: SIRS- 3; qSOFA- 1 - WBC 18.54, neutrophil predominant, with leukopenia- Platelet count 279 - Hyperglycemia- likely stress response at this time - NO evidence of other organ dysfunction- Lactate negative - CRP 37.2 - PCT 3 now with worsening respiratory failure would be considered severe sepsis with hypoxia no growth on blood cultures continue Levaquin and Zosyn (4) Hypercalcemia: Likely related to hypovolemia- - No parasthesias, muscle weakness, - Check iCA: 1.5 - 500ml of Normosol- followed with Normosol at 125- this should resolve with repleting intravascular volume - TSH low normal PTH high normal at 73 Vitamin D low at 14 Calcium down to 11.4 from 12.4 on admission (5) Hypovolemia: As above- clinically hypovolemia with increase in insensible losses with tachypnea, fevers - continue isotonic volume resuscitation - BP stable, tachycardic making more urine not eating or drinking well, continue fluids (6) Elevated glucose: Likely stress response to acute illness - denies history of such - Follow trend - Notify if >180 Admission and Anticipated Discharge Date Admission Date: January 11, 2021 Subjective patient feeling slightly better, up to 4L NC, very short of breath with minimal exertion got CT chest that shows multifocal pneumonia with consolidation WBC down to 16k from 18k, Cr and K normal, Phos low, ordered replacement he ate a little more today than yesterday but not much, continue fluids updated his mother at the bedside, explained that he will be here for the rest of the week discussed that repeat COVID test was also negative, removed isolation precautions no one else is sick in his family he does not smoke, he used to vape but quit 1 year ago he confirms that he felt completely normal Tuesday and morning and then started to feel ill afternoon into the evening will change up antibiotics to Levaquin and Zosyn, stop Zithromax consult pulmonology as he is 20 and has potential to get critically ill, ask for any further recommendations Review of Systems Review of Systems: All systems reviewed & are unremarkable except as noted in Subjective Constitutional: + body aches, + fatigue, + malaise and + weakness; no fever, no chills and no sweats Respiratory: + cough, + dyspnea and + dyspnea on exertion; no sputum production and no wheezing Cardiovascular: no chest pain and no syncope Gastrointestinal: + early satiety; no abdominal pain, no nausea, no vomiting, no constipation and no diarrhea/loose stools Physical Exam Constitutional: well developed, well nourished, + ill appearing, comfortable and + diaphoretic; no acute distress Neck: trachea midline, no thyromegaly Respiratory: + labored breathing, + cough and + tachypneic Auscultation: + crackles (diffuse); no rales, no rhonchi and no wheezes Cardiovascular: Rate/Rhythm: regular rhythm and + tachycardic Heart Sounds: normal S1 and normal S2; no murmur Vessels: no JVD Extremities: normal capillary refill; no edema Gastrointestinal (Abdomen): normal bowel sounds, soft, nontender, no hepatosplenomegaly Musculoskeletal: no cyanosis or clubbing, extremities motor strength 5/5 Skin: no rashes, warm and dry Neurologic: patellar DTR's 2+ bilat, sensation intact and PERRL, EOMI, accommodation nl, no face palsy, no dysarthria Psychiatric: A+Ox3, euthymic affect Lymphatic: no cervical or axillary lymphadenopathy Results & Data Results & Data ([facility]) Vital Signs (Past 12 Hours) Vital Signs Temp Pulse Pulse Resp BP Pulse Ox 01/12/21 13:22 111 H 20 86 L 01/12/21 11:40 37.6 C H 112 H 20 143/82 H 91 01/12/21 08:25 37.3 C 112 H 22 145/89 H 91 01/12/21 08:13 117 H 01/12/21 07:29 105 H 18 93 Laboratory Results Laboratory Results - last 24 hr 01/11/21 01/11/21 01/11/21 14:52 16:07 17:05 WBC RBC Hgb Hct MCV MCH MCHC RDW Std Deviation RDW Coeff of Vidhya Plt Count MPV Immature Gran % (Auto) Neut % (Auto) Lymph % (Auto) Zapata % (Auto) Eos % (Auto) Baso % (Auto) Neut # (Auto) Lymph # (Auto) Zapata # (Auto) Eos # (Auto) Baso # (Auto) Immature Gran # (Auto) Sodium Potassium Chloride Carbon Dioxide Anion Gap BUN Creatinine Est Cr Clr Drug Dosing Est GFR ( Amer) Est GFR (Non-Af Amer) BUN/Creatinine Ratio Glucose Calcium Ionized Calcium Phosphorus 1.9 L Magnesium Lactate Dehydrogenase C-Reactive Protein 37.20 H 25-OH Vitamin D Total Procalcitonin TSH 0.767 PTH Intact 73.1 COVID-19 Eval Order SARS-CoV-2 (PCR) Urine Legionella Ag RSV (Molecular) Negative 01/11/21 01/11/21 01/11/21 17:05 17:05 22:15 WBC RBC Hgb Hct MCV MCH MCHC RDW Std Deviation RDW Coeff of Vidhya Plt Count MPV Immature Gran % (Auto) Neut % (Auto) Lymph % (Auto) Zapata % (Auto) Eos % (Auto) Baso % (Auto) Neut # (Auto) Lymph # (Auto) Zapata # (Auto) Eos # (Auto) Baso # (Auto) Immature Gran # (Auto) Sodium Potassium Chloride Carbon Dioxide Anion Gap BUN Creatinine Est Cr Clr Drug Dosing Est GFR ( Amer) Est GFR (Non-Af Amer) BUN/Creatinine Ratio Glucose Calcium Ionized Calcium 1.50 Phosphorus Magnesium Lactate Dehydrogenase C-Reactive Protein 25-OH Vitamin D Total Procalcitonin 3.25 H TSH PTH Intact COVID-19 Eval Order SARS-CoV-2 (PCR) Urine Legionella Ag Pending RSV (Molecular) 01/12/21 01/12/21 01/12/21 06:01 06:01 06:01 WBC 16.63 H RBC 3.97 L Hgb 12.0 L Hct 34.9 L MCV 87.9 MCH 30.2 MCHC 34.4 RDW Std Deviation 39.1 RDW Coeff of Vidhya 12.1 Plt Count 318 MPV 9.8 Immature Gran % (Auto) 0.2 Neut % (Auto) 94.2 Lymph % (Auto) 3.3 Zapata % (Auto) 2.3 Eos % (Auto) 0.0 Baso % (Auto) 0.0 Neut # (Auto) 15.66 H Lymph # (Auto) 0.55 L Zapata # (Auto) 0.38 Eos # (Auto) 0.00 Baso # (Auto) 0.00 Immature Gran # (Auto) 0.04 H Sodium 138 Potassium 3.9 Chloride 106 Carbon Dioxide 29 Anion Gap 3.0 BUN 16 Creatinine 0.80 D Est Cr Clr Drug Dosing 153.4 Est GFR ( Amer) > 150.0 Est GFR (Non-Af Amer) 129.5 BUN/Creatinine Ratio 19.9 Glucose 112 H Calcium 11.4 H Ionized Calcium 1.50 Phosphorus 1.7 L Magnesium 2.0 Lactate Dehydrogenase C-Reactive Protein 25-OH Vitamin D Total Procalcitonin TSH PTH Intact COVID-19 Eval Order SARS-CoV-2 (PCR) Urine Legionella Ag RSV (Molecular) 01/12/21 01/12/21 01/12/21 06:01 11:05 11:05 WBC RBC Hgb Hct MCV MCH MCHC RDW Std Deviation RDW Coeff of Vidhya Plt Count MPV Immature Gran % (Auto) Neut % (Auto) Lymph % (Auto) Zapata % (Auto) Eos % (Auto) Baso % (Auto) Neut # (Auto) Lymph # (Auto) Zapata # (Auto) Eos # (Auto) Baso # (Auto) Immature Gran # (Auto) Sodium Potassium Chloride Carbon Dioxide Anion Gap BUN Creatinine Est Cr Clr Drug Dosing Est GFR ( Amer) Est GFR (Non-Af Amer) BUN/Creatinine Ratio Glucose Calcium Ionized Calcium Phosphorus Magnesium Lactate Dehydrogenase C-Reactive Protein 25-OH Vitamin D Total 14.8 L Procalcitonin TSH PTH Intact COVID-19 Eval Order Covid19 at [facility] SARS-CoV-2 (PCR) NEGATIVE Urine Legionella Ag RSV (Molecular) 01/12/21 16:44 WBC RBC Hgb Hct MCV MCH MCHC RDW Std Deviation RDW Coeff of Vidhya Plt Count MPV Immature Gran % (Auto) Neut % (Auto) Lymph % (Auto) Zapata % (Auto) Eos % (Auto) Baso % (Auto) Neut # (Auto) Lymph # (Auto) Zapata # (Auto) Eos # (Auto) Baso # (Auto) Immature Gran # (Auto) Sodium Potassium Chloride Carbon Dioxide Anion Gap BUN Creatinine Est Cr Clr Drug Dosing Est GFR ( Amer) Est GFR (Non-Af Amer) BUN/Creatinine Ratio Glucose Calcium Ionized Calcium Phosphorus Magnesium Lactate Dehydrogenase Pending C-Reactive Protein 25-OH Vitamin D Total Procalcitonin TSH PTH Intact COVID-19 Eval Order SARS-CoV-2 (PCR) Urine Legionella Ag RSV (Molecular) Diagnostic Findings CT chest IMPRESSION: 1. Multifocal airspace consolidation is seen throughout both lungs and is compatible with the reported history of pneumonia. Superimposed pulmonary hem orrhage or pulmonary edema would be impossible to exclude and clinical correlation will be essential. Radiographic follow-up to resolution is recommended. 2. Mildly enlarged mediastinal and hilar lymph nodes are likely reactive. 3. No pleural effusion. 4. Additional findings as above. Medications Administered Current Inpatient Medications Acetaminophen (Acetaminophen 325 Mg Tab) 650 mg PO Q4H PRN PRN Reason: Pain or Fever Stop: 02/10/21 19:59 Last Admin: 01/12/21 11:18 Dose: 650 mg Documented by: Albuterol (Albuterol 0.083% Nebu Soln 3 Ml Vial) 2.5 mg NEB Q6R CRISTI Stop: 02/11/21 00:59 Last Admin: 01/12/21 13:21 Dose: 2.5 mg Documented by: Albuterol (Albuterol Hfa 8 Gm Inhaler) 2 puffs INH Q6 PRN PRN Reason: Dyspnea Stop: 02/10/21 19:59 Last Admin: 01/12/21 00:00 Dose: 2 puffs Documented by: Heparin Sodium (Porcine) (Heparin Sod 5,000 Unit/0.5 Ml Vial) 5,000 units SQ Q12 CRISTI Stop: 02/10/21 20:59 Last Admin: 01/12/21 08:19 Dose: 5,000 units Documented by: Parenteral Electrolytes (Normosol-R) 1,000 mls @ 125 mls/hr IV .Q8H CRISTI Stop: 02/10/21 18:13 Last Admin: 01/12/21 13:31 Dose: 125 mls/hr Documented by: Piperacillin Sod/Tazobactam (Sod 3.375 gm/ Dextrose) 115 mls @ 28.75 mls/hr IV Q8H CRISTI; Protocol Stop: 01/18/21 20:59 Last Infusion: 01/12/21 17:14 Dose: Infused Documented by: Levofloxacin/Dextrose (Levaquin/D5w) 750 mg in 150 mls @ 100 mls/hr IV Q24H CRISTI; Protocol Stop: 01/19/21 17:59 Lactobacillus Acidoph/Casei/Rhamnos (Advanced Probiotic 1250 Mg Capsule) 2 cap PO DAILY [facility] Stop: 02/11/21 08:59 Last Admin: 01/12/21 08:19 Dose: 2 cap Documented by: Miscellaneous Information (Piperacill/Tazobac Consult Active) 1 ea N/A UD PRN PRN Reason: Consult Stop: 02/10/21 14:11 Ondansetron HCl (Ondansetron Inj 2 Mg/Ml 2 Ml Vial) 4 mg IV Q6H PRN PRN Reason: Nausea Stop: 02/10/21 19:59 Last Admin: 01/12/21 11:11 Dose: 4 mg Documented by: Vitamin D (Cholecalciferol 1,000 Units 25 Mcg Tab) 1,000 units PO QAM [facility] Stop: 02/12/21 08:59 PG Care Time/CCT Total # of Minutes Spent Total Time Spent: 40 Total Time Spent with Patient: Total time spent is greater than 50% in coordination of care (as documented) at patient's floor/unit and/or counseling patient: Coding Level of Care Code 99684 Subseq Hosp Care Lvl 3 Diagnoses Acute respiratory failure with hypoxia J96.01 Pneumonia J18.9 Laterality: bilateral Lung location: lower lobe of lung Pneumonia type: due to unspecified organism Sepsis A41.9 Sepsis acute organ dysfunction status: without acute organ dysfunction Sepsis type: sepsis due to unspecified organism Hypercalcemia E83.52 Hypovolemia E86.1 Elevated glucose R73.09 (1) Sepsis Sepsis acute organ dysfunction status: without acute organ dysfunction Sepsis type: sepsis due to unspecified organism Qualified Code(s): A41.9 - Sepsis, unspecified organism (2) Pneumonia Laterality: bilateral Lung location: lower lobe of lung Pneumonia type: due to unspecified organism Qualified Code(s): J18.9 - Pneumonia, unspecified organism
[2021-01-12] MEDS ORDERED: levoFLOXacin/D5W 750 MG/150 ML BAG IV SCH (18:00)
[2021-01-12] MEDS ORDERED: CEFEPIME 2,000 MG in SYRINGE 0 ML IV SCH (21:00)
[2021-01-12 23:34] LABS: Allen Test POS (Pos); Base Excess ABG 3.7 mEq/L (-9-1.8); HCO3 ABG 29 mmol/L (19-24); Oxygen Saturation ABG 92.9 % (90-95); PCO2 ABG 44 mmHg (35-46); PO2 ABG 60 mmHg (80-95); pH ABG 7.43 (7.35-7.45)
[2021-01-13] MEDS ORDERED: PROPOFOL BOLUS FROM BAG IV PRN (01:25)
[2021-01-13] MEDS ORDERED: STAT IV Infusion **Titration per Protocol STA ×2 (01:25→11:56)
[2021-01-13] MEDS ORDERED: PROPOFOL IV EMULSION 10 MG/ML 100 ML VIAL IV ONE (01:29)
[2021-01-13] MEDS ORDERED: CISATRACURIUM BESYLATE 40 MG in 0.9 % SODIUM CHLORIDE 80 ML IV SCH (01:30)
[2021-01-13] MEDS: ALBUTEROL 0.083% NEBU SOLN 3 ML VIAL NEB SCH (01:45)
--- NOTE | 2021-01-13 01:53 | Anesthesiology Progress Note ---
Date of Service Asked by ICU staff to secure airway in pt with acute respiratory failure. Pt is 20 yo male, previously healthy, who has experienced increasing dyspnea, tachyp donal and oxygen requirement. Covid negative thus far. VSS, SaO2 99% on 100% O2, airway exam unremarkable. Sedated with propofol 200 mg IV. OTIUDV after 1 attempt Grade 1 view. 8.0 mm ETT secured at 24 cm. +BLBS, +ETCO2. Sux 100mg IV given after inubation. CXR pending. Pt left in care of ICU staff. January 13, 2021 Assessment & Plan Admission and Anticipated Discharge Date Admission Date: January 11, 2021 Physical Exam Vital Signs: Last Vital Signs Temp 37.2 C 01/12/21 23:01 Pulse 115 H 01/12/21 23:50 Resp 24 01/12/21 23:50 BP 150/93 H 01/12/21 23:01 Pulse Ox 99 01/13/21 00:41 Results & Data ([facility]) Medications Administered Acetaminophen (Acetaminophen 325 Mg Tab) 650 mg PO Q4H PRN PRN Reason: Pain or Fever Stop: 02/10/21 19:59 Last Admin: 01/12/21 11:18 Dose: 650 mg Documented by: [id number] Albuterol (Albuterol 0.083% Nebu Soln 3 Ml Vial) 2.5 mg NEB Q6R CRISTI Stop: 02/11/21 00:59 Last Admin: 01/12/21 20:08 Dose: 2.5 mg Documented by: [id number] Admin: 01/12/21 13:21 Dose: 2.5 mg Documented by: [id number] Admin: 01/12/21 07:28 Dose: 2.5 mg Documented by: [id number] Admin: 01/12/21 00:01 Dose: Not Given Documented by: [id number] Albuterol (Albuterol Hfa 8 Gm Inhaler) 2 puffs INH Q6 PRN PRN Reason: Dyspnea Stop: 02/10/21 19:59 Last Admin: 01/12/21 00:00 Dose: 2 puffs Documented by: [id number] Heparin Sodium (Porcine) (Heparin Sod 5,000 Unit/0.5 Ml Vial) 5,000 units SQ Q12 CRISTI Stop: 02/10/21 20:59 Last Admin: 01/12/21 21:55 Dose: Not Given Documented by: [id number] Admin: 01/12/21 08:19 Dose: 5,000 units Documented by: [id number] Admin: 01/11/21 22:02 Dose: 5,000 units Documented by: [id number] Parenteral Electrolytes (Normosol-R) 1,000 mls @ 125 mls/hr IV .Q8H CRISTI Stop: 02/10/21 18:13 Last Admin: 01/12/21 21:42 Dose: 125 mls/hr Documented by: [id number] Infusion: 01/12/21 21:31 Dose: 125 mls/hr Documented by: [id number] Admin: 01/12/21 13:31 Dose: 125 mls/hr Documented by: [id number] Infusion: 01/12/21 13:25 Dose: 125 mls/hr Documented by: [id number] Admin: 01/12/21 05:25 Dose: 125 mls/hr Documented by: [id number] Infusion: 01/12/21 05:25 Dose: 125 mls/hr Documented by: [id number] Admin: 01/11/21 22:01 Dose: 125 mls/hr Documented by: [id number] Piperacillin Sod/Tazobactam (Sod 3.375 gm/ Dextrose) 115 mls @ 28.75 mls/hr IV Q8H CRISTI; Protocol Stop: 01/18/21 20:59 Last Admin: 01/12/21 21:43 Dose: 28.8 mls/hr Documented by: [id number] Infusion: 01/12/21 17:14 Dose: 0 mls/hr Documented by: [id number] Admin: 01/12/21 13:30 Dose: 28.8 mls/hr Documented by: [id number] Infusion: 01/12/21 09:09 Dose: 0 mls/hr Documented by: [id number] Admin: 01/12/21 05:17 Dose: 28.8 mls/hr Documented by: [id number] Infusion: 01/12/21 02:29 Dose: 0 mls/hr Documented by: [id number] Admin: 01/11/21 22:01 Dose: 28.8 mls/hr Documented by: [id number] Levofloxacin/Dextrose (Levaquin/D5w) 750 mg in 150 mls @ 100 mls/hr IV Q24H CRISTI; Protocol Stop: 01/19/21 17:59 Last Infusion: 01/12/21 19:49 Dose: 0 mls/hr Documented by: [id number] Admin: 01/12/21 17:57 Dose: 100 mls/hr Documented by: [id number] Lactobacillus Acidoph/Casei/Rhamnos (Advanced Probiotic 1250 Mg Capsule) 2 cap PO DAILY [facility]I Stop: 02/11/21 08:59 Last Admin: 01/12/21 08:19 Dose: 2 cap Documented by: [id number] Ondansetron HCl (Ondansetron Inj 2 Mg/Ml 2 Ml Vial) 4 mg IV Q6H PRN PRN Reason: Nausea Stop: 02/10/21 19:59 Last Admin: 01/12/21 20:15 Dose: 4 mg Documented by: [id number] Admin: 01/12/21 11:11 Dose: 4 mg Documented by: [id number]
[2021-01-13 01:55] LABS: Adenovirus PCR Not Detected (NotDetected); Bordetella parapertussis PCR Not Detected (NotDetected); Bordetella pertussis PCR Not Detected (NotDetected); Chlamydia pneumoniae PCR Not Detected (NotDetected); Coronavirus 229E PCR Not Detected (NotDetected); Coronavirus CoV-2 (COVID19)PCR Not Detected (NotDetected); Coronavirus HKU1 PCR Not Detected (NotDetected); Coronavirus NL63 PCR Not Detected (NotDetected); Coronavirus OC43PCR Not Detected (NotDetected); Human Metapneumovirus PCR Not Detected (NotDetected); Influenza A PCR Not Detected (NotDetected); Influenza B PCR Not Detected (NotDetected); Mycoplasma pneumoniae PCR Not Detected (NotDetected); Parainfluenza Virus 1 PCR Not Detected (NotDetected); Parainfluenza Virus 2 PCR Not Detected (NotDetected); Parainfluenza Virus 3 PCR Not Detected (NotDetected); Parainfluenza Virus 4 PCR Not Detected (NotDetected); Respiratory Syncytial VirusPCR Not Detected (NotDetected); Rhinovirus/Enterovirus PCR Not Detected (NotDetected)
[2021-01-13] MEDS: NORMOSOL-R 1,000 ML IV SCH (01:56)
[2021-01-13] MEDS: propofoL 1,000 MG/100 ML VIAL IV SCH ×2 (01:57→10:35)
[2021-01-13] MEDS: fentaNYL DRIP 1,250 MCG/250 ML BAG IV SCH ×3 (02:01→17:18)
[2021-01-13] MEDS ORDERED: ALBUTEROL 0.083% NEBU SOLN 3 ML VIAL NEB PRN (02:01)
[2021-01-13] MEDS ORDERED: dexAMETHasone 10 MG in SYRINGE 0 ML IV ONE (02:30)
--- NOTE | 2021-01-13 02:34 | Procedure Note ---
Procedure Note Date of Service January 13, 2021 Note ARTERIAL LINE PROCEDURE NOTE: Procedure: Arterial Line Placement Attending: Dr. Kadeem Mcgrath Provider: SEAN Thomason Indication: Frequent ABGs, continuous hemodynamic monitoring Anesthesia: None Line placed emergently following emergent intubation for severe ARDS A time-out was completed verifying correct patient, procedure, site, positioning, and implant(s) or special equipment if applicable. Allens test was performed to ensure adequate perfusion. Patients left wrist was prepped and draped in the usual sterile fashion. Ultrasound guidance was used to aid needle placement. A 20g Arrow arterial line was introduced into the left radial artery. Catheter was threaded, and the needle was removed with appropriate blood return. Good waveform was observed. The patient tolerated the procedure well. Confirmation of placement with ultrasound. Blood Loss: Minimal Complications: None Procedural Ultrasound Guidance: Procedure Date: 01/13/2021 Indication: Arterial line insertion Attending: Dr. Kadeem Mcgrath Provider: SEAN Thomason Artery Identified: YES Line confirmed in Artery with ultrasound: Yes Complications: NONE Patient tolerated procedure: WELL Coding CPT Codes Tubes, Drains, and Vasc Access - Tubes, Drains, and Vasc Access: [id number] Place Catheter In Artery ([id number]) Tubes, Drains, and Vasc Access - Tubes, Drains, and Vasc Access: [id number] Ultrasound Guidance For Vascular ([id number]) [facility] Procedure Codes (Charges) Tubes, Drains, and Vasc Access Procedure 1: Tubes, Drains, and Vasc Access: [id number] Place Catheter In Artery Procedure 2: Tubes, Drains, and Vasc Access: [id number] Ultrasound Guidance For Vascular
--- NOTE | 2021-01-13 02:34 | Critical Care Consultation ---
Date of Consultation January 13, 2021 Assessment & Plan (1) Admitted to intensive care unit: Reason Critically Ill: 20-year-old male undergoing treatment for pneumonia and currently POI for COVID-19 underwent intubation this a.m. for worsening hypoxia and respiratory distress with development of severe ARDS. Neuro - Sedation: Propofol/fentanyl Cardiac - No history of cardiac disease Normal sinus rhythm on monitor, QTC on last EKG 426 Echo pending A-line inserted for continuous hemodynamic monitoring Continuous monitor on telemetry Respiratory - Acute hypoxic respiratory failurepatient with severe ARDS, failed HFNC trial and required intubation -Chest x-ray with worsening patchy bilateral infiltrates consistent with pneumonia -Etiology most likely viral pneumonia versus bacterial pneumonia, see ID for management -Cannot rule out potential chemical exposure at this time as patient has history of vaping along with reports of concrete dust exposure at work. Would continue with supportive therapy -Patient 6.5 L fluid positive, will give 20 mg IV Lasix -Weaning vent as tolerated per high PEEP arts net protocol. We will hold off on proning/paralytics at this time as patient has significantly improved oxygenation following intubation. -Continuous pulse ox and end-tidal CO2 monitoring -Nebs as needed -Consider diagnostic bronchoscopy GI - N.p.o. OG tube to intermittent low wall suction RENAL/LYTES - Creatinine within normal limits Monitor electrolytes with routine BMPs and replete as indicated - Foleystrict I's note ENDO - No history of diabetes or thyroid disease ICU hyperglycemic protocol HEME - H&H stable, monitor routine CBCs ID - Sepsis/pneumoniaCT chest as above, chest x-ray with patchy bilateral infiltrates consistent with pneumonia -Elevated WBC, pro calcitonin -Blood cultures pending -Legionella and mycoplasma pending -Nasal MRSA negative -Continue Levaquin and Zosyn for now -Covid PCR negative x2 and bio fire also negative. However, patient has elevated CRP greater than 32, lymphocytopenia, and elevated LDH as well which would be consistent with COVID-19 infection -Influenza A/B negative, RSV negative -Starting treatment for COVID-19 with IV dexamethasone, Tocilizumab 8 mg/kg x 1 dose LINES/IV ACCESS - Peripheral IVs, A-line, ET tube, OG tube, Marquis DVT PROPHYLAXIS - SCDs, subcu heparin I have personally spent 85 minutes of critical care time in the direct management of this patient. This is a life/limb threatening event. This includes time spent evaluating patient, direct bedside care, chart review, placing orders, interpretation of diagnostic studies, discussion with consultants, patient, and family members, as well as other required patient management activities. This time is exclusive of all separately billable procedures, and teaching time and separate from and in addition to any other critical care service time. Thank you for allowing us to participate in the care of this patient. Please refer to my attending physician's documentation for any further recommendations. (2) Acute respiratory failure with hypoxia: (3) Hypercalcemia: (4) Sepsis: (5) Pneumonia: Supervising Physician Co-Signing Physician Notes I have personally evaluated and examined this patient. I agree with assessment and plan of Angela ESTRADA. I discussed with the hospitalist; patient has been accepted in transfer to [facility] this is a family request for further evaluation. I was going to defer bronchoscopy to Dr. Pickett bronchoscopy is been deferred indefinitely pending transfer to [facility]. At this time we will transition from high PEEP low FiO2 to high FiO2 low PEEP given that the patient may require bronchoscopy with tissue biopsy. He has a bio fire which is negative and additional COVID-19 negative tube serologies I believe that while this could be viral in origin autoimmune disease process is higher in the differential and I have increased his steroids. History of Present Illness Attending Physician: Tay Levy DO History of Present Illness Patient is a 20-year-old male without significant past medical history, without home medications. Patient presented to the emergency room on 01/11 with complaints of nausea and vomiting and a dry nonproductive cough with intermittent shortness of breath and subjective fevers. The symptoms started , January 08. 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 Patient also reports history of vaping to which he stated he quit approximately 5 months ago. He denied other drug use. Patient was found to be tachypneic and hypoxic in the ER and was placed on nasal cannula. COVID-19 PCR was negative. He was admitted to PCU and was undergoing treatment for pneumonia. CT the chest earlier today showed diffuse, multifocal pneumonia. Patient had become increasingly hypoxic and was placed on HF NC at 100% and 30 L. Patient remained severely tachypneic with marginal oxygen saturations in the low 90s. Decision was made to emergently intubate for which the patient was agreeable to. He was transferred to ICU room 206 where he was intubated without complications by anesthesiologist. Bio fire was conducted which is negative. However, patient's subjective and physical exam and other lab work is consistent with COVID-19 pneumonia and will undergo precautions and treatment until proven otherwise. I did speak with the patient's mother and updated her on his condition prior to and following intubation. Patient has shown improvement in oxygenation with mechanical ventilation and FiO2 has been weaned to 40%. He is currently undergoing high PEEP arts net protocol for vent weaning. We will continue further management in ICU for now. Allergies Allergy/AdvReac Type Severity Reaction Status Date / Time codeine Allergy Unknown Unknown Unverified 01/11/21 13:30 Home Medications Medication Instructions Recorded Confirmed Type No Known Home Medications 01/11/21 01/11/21 History Patient History Medical History Patient denies medical problems Family History (Updated 01/11/21 @ 18:07 by SEAN Tariq) Grandmother Thyroid disease Mom thinks she may have had some parathyroid issue as well but can't remember Other Dyslipidemia Hypertension Social History (Updated 01/11/21 @ 17:35 by SEAN Tariq) Smoking Status: Never smoker Tobacco Type: E-cigarettes / Vaping Cigarettes Per Day: tried for a few months and quit- quit 4-5 months ago (~Aug 2020); Hx Alcohol Use: No Hx Substance Use: No Preferred Language: Citizen Of [place] Communication Ability: Effective Director Of Student Aid Required: No Beliefs That Will Affect Care: None marital status: Single Current Living Situation: Family Current Living Situation Comment: Mother, father and sister current occupational status: employed Other Information That Helps Us Care for You: No Feels Safe at Home: Yes Safety Concerns: Feels Safe At This Time Assistive Devices: None Review of Systems Review of Systems: Unobtainable due to endotracheal tube Physical Exam Eyes: PERRL, conjunctivae normal, anicteric sclerae ENMT: external ear and nose normal, oropharynx normal Neck: trachea midline, no thyromegaly Respiratory: Lungs coarse and rhonchi auscultated bilaterally in all lung boone. Symmetrical chest wall movement. Mechanically ventilated. Cardiovascular: RRR, no murmur, no edema Vessels: no JVD Extremities: normal capillary refill; no edema Gastrointestinal (Abdomen): normal bowel sounds, soft, nontender, no hepatosplenomegaly Skin: no rashes, warm and dry Neurologic: Unable to assess due to sedation. Psychiatric: Unable to assess due to sedation. Genitourinary: Indwelling Marquis catheter present Results & Data Results [facility] ([facility]) Vital Signs (Past 12 Hours) Vital Signs Temp Pulse Pulse Resp BP Pulse Ox 01/13/21 01:50 96 H 20 97 01/13/21 00:41 99 01/12/21 23:50 115 H 24 94 01/12/21 23:01 37.2 C 111 H 52 H 150/93 H 86 L 01/12/21 20:56 92 01/12/21 20:15 89 L 01/12/21 20:08 105 H 20 91 01/12/21 20:05 6 L 01/12/21 20:00 37.5 C 115 H 24 148/96 H 77 L 01/12/21 16:[address] SCAN OF THE CHEST WITH IV CONTRAST IMPRESSION: 1. Multifocal airspace consolidation is seen throughout both lungs and is compatible with the reported history of pneumonia. Superimposed pulmonary hemorrhage or pulmonary edema would be impossible to exclude and clinical correlation will be essential. Radiographic follow-up to resolution is recommended. 2. Mildly enlarged mediastinal and hilar lymph nodes are likely reactive. 3. No pleural effusion. 4. Additional findings as above. Coding Level of Care Code Critical Care ea addt'l 30 min Diagnoses Admitted to intensive care unit Z78.9 Acute respiratory failure with hypoxia J96.01 Hypercalcemia E83.52 Sepsis A41.9 Sepsis acute organ dysfunction status: without acute organ dysfunction Sepsis type: sepsis due to unspecified organism Pneumonia J18.9 Laterality: bilateral Lung location: lower lobe of lung Pneumonia type: due to unspecified organism (1) Sepsis Sepsis acute organ dysfunction status: without acute organ dysfunction Sepsis type: sepsis due to unspecified organism Qualified Code(s): A41.9 - Sepsis, unspecified organism (2) Pneumonia Laterality: bilateral Lung location: lower lobe of lung Pneumonia type: due to unspecified organism Qualified Code(s): J18.9 - Pneumonia, unspecified organism
[2021-01-13 02:49] LABS: iSTAT Art Bld Gas pCO2 Correct 44 mmHg (35-46); iSTAT Art Bld Gas pH Corrected 7.448 (7.35-7.45); iSTAT Arterial Blood Gas HCO3 30 meg/L (19-24); iSTAT Arterial Blood Gas pCO2 43 mmHg (35-46); iSTAT Arterial Blood Gas pH 7.46 (7.35-7.45); iSTAT Arterial Blood Gas pO2 111 mmHg (80-95); iSTAT Arterial Blood Gas pO2 C 114; iSTAT Carbon Dioxide 32 mmol/L (24-31); iSTAT FiO2 50 %; iSTAT Hematocrit 31 % (42-52); iSTAT Hemoglobin 10.5 g/dl (14.0-18.0); iSTAT Potassium 3.9 mmol/L (3.3-5.0); iSTAT Site R Radial; iSTAT Sodium 137 mmol/L (135-144)
[2021-01-13] MEDS ORDERED: TOCILIZUMAB 400 MG, TOCILIZUMAB 200 MG in 0.9 % SODIUM CHLORIDE 70 ML IV ONE (03:00)
[2021-01-13 03:30] LABS: Eosinophils # (auto) 0.02 K/uL (0-0.5); Eosinophils % (auto) 0.1 %; Hemoglobin 10.2 g/dL (14.0-18.0); Immature Granulocytes # (auto) 0.06 K/uL (0.00-0.02); Immature Granulocytes % (auto) 0.4 %; Lymphocytes # (auto) 0.52 K/uL (1.2-3.4); Lymphocytes % (auto) 3.8 %; Mean Corpuscular Volume 88.2 fL (80-100); Mean Platelet Volume 9.4 fL (7.4-10.4); Monocytes # (auto) 0.36 K/uL (0.11-0.59); Monocytes % (auto) 2.6 %; Neutrophils # (auto) 12.77 K/uL (1.4-6.5); Neutrophils % (auto) 93.1 %; Platelet Count 240 K/uL (130-400); RDW Coefficient of Variation 12.2 % (11.5-14.5); RDW Standard Deviation 39.6 fL (36.4-46.3); White Blood Count 13.73 K/uL (4.8-10.8)
[2021-01-13 03:40] LABS: INR 1.2 (0.9-1.1); Prothrombin Time 11.9 Seconds (9.0-12.0)
[2021-01-13 03:48] LABS: Alanine Aminotransferase 24 U/L (12-78); Albumin Level 2.1 gm/dl (3.4-5.0); Aspartate Aminotransferase 42 U/L (15-37); BUN Creatinine Ratio 18.5 (10-20); Blood Urea Nitrogen 12 mg/dl (7-18); Calcium 10.3 mg/dl (8.5-10.1); Carbon Dioxide 31 mmol/L (21-32); Chloride 103 mmol/L (98-107); Creatinine Clr Calc Pharmacy 191.7 ml/min; Est GFR (African American) > 150.0 ml/min; Est GFR (Non-African American) 141.9 ml/min; Glucose 109 mg/dl (70-99); Magnesium 1.6 mg/dl (1.8-2.4); Sodium 138 mmol/L (136-145)
[2021-01-13] MEDS ORDERED: FUROSEMIDE 20 MG in SYRINGE 0 ML IV ONE (03:53)
[2021-01-13 04:03] LABS: Albumin Globulin Ratio 0.5 (0.9-2); Alkaline Phosphatase 61 U/L (45-117); Bilirubin,Total 0.8 mg/dl (0.2-1); Globulin 3.9 gm/dl (2.5-4.0); Phosphorus 2.8 mg/dl (2.5-4.9)
[2021-01-13] MEDS ORDERED: FUROSEMIDE 40 MG/4 ML VIAL IV ONE (04:15)
[2021-01-13] MEDS: MAGNESIUM SULFATE / D5W 1 GM/100 ML BAG IV SCH ×2 (05:26→08:17)
[2021-01-13 05:34] LABS: iSTAT Art Bld Gas pCO2 Correct 49 mmHg (35-46); iSTAT Art Bld Gas pH Corrected 7.402 (7.35-7.45); iSTAT Arterial Blood Gas HCO3 30 meg/L (19-24); iSTAT Arterial Blood Gas pCO2 48 mmHg (35-46); iSTAT Arterial Blood Gas pH 7.41 (7.35-7.45); iSTAT Arterial Blood Gas pO2 85 mmHg (80-95); iSTAT Arterial Blood Gas pO2 C 88; iSTAT Carbon Dioxide 32 mmol/L (24-31); iSTAT FiO2 40 %; iSTAT Hematocrit 30 % (42-52); iSTAT Hemoglobin 10.2 g/dl (14.0-18.0); iSTAT Potassium 4.3 mmol/L (3.3-5.0); iSTAT Site Art Line; iSTAT Sodium 139 mmol/L (135-144)
[2021-01-13] MEDS: PIPERACILLIN/TAZOBACTAM 3.375 GM in DEXTROSE 5% 100 ML IV SCH ×2 (06:43→12:04)
[2021-01-13] MEDS ORDERED: ARTIFICIAL TEARS OP OINT 3.5 GM TUBE OP PRN (07:29)
--- NOTE | 2021-01-13 08:06 | XRay Report ---
SINGLE VIEW CHEST CLINICAL HISTORY: Hypoxia. FINDINGS: An AP, portable, upright chest radiograph is compared to study dated 01/11/2021 and correlat ed with chest CT performed earlier the same day 01/12/2021. The cardiomediastinal silhouette is unrema rkable. There is increasing bilateral airspace consolidation as compared to yesterday. No large pleur al effusion or pneumothorax is seen. The bony thorax is grossly intact. IMPRESSION: Increasing bilateral airspace consolidation as compared to yesterday. ACT 112: Negative or not required by law. Electronically signed by: Myles Ann M.D. 01/13/2021 8:04 AM
[2021-01-13] MEDS: HEPARIN SOD 5,000 UNIT/0.5 ML VIAL SQ SCH (08:18)
[2021-01-13] MEDS: ADVANCED PROBIOTIC 1250 MG CAPSULE PO SCH (08:19)
[2021-01-13] MEDS ORDERED: CHOLECALCIFEROL 1,000 UNITS 25 MCG TAB PO SCH (09:00)
[2021-01-13] MEDS ORDERED: guaiFENesin 600 MG TABCR PO SCH (09:00)
[2021-01-13] MEDS ORDERED: dexAMETHasone 6 MG in SYRINGE 0 ML IV SCH (09:00)
--- NOTE | 2021-01-13 09:59 | Pulmonary Consultation ---
Date of Consultation January 13, 2021 Assessment & Plan (1) Acute respiratory failure with hypoxia: CT chest 01/12/2021 personally reviewed: Diffuse patchy groundglass opacities appreciated more in the lower lobes especially left lower. Mediastinal lymphadenopathy at subcarinal as well as station 4R. --Acute hypoxic respiratory failure with multi lobar infiltrate Currently vent dependent given the significant deterioration in oxygenation overnight Patient is in ALI COVID-19 PCR has been negative x3, influenza A/B has been negative CRP: 37 --> 25 Positive lymphopenia Etiology could be infectious versus noninfectious Infectious etiologies includes atypical infections, viral infection and bacterial infection --> continue with broad-spectrum antibiotics along with atypical coverage, follow-up mycoplasma IgM and urine Legionella antigen Noninfectious etiology include autoimmune, EVALI, DAH can present the same way but no hemoptysis. Strong family history of autoimmune disease on mother side. Hypersensitive pneumonitis can present this way along with sarcoidosis flare. Continue with lung protective ventilation Patient did get Tocilizumab 400 mg 4 AM 01/13/2021 Critical care management as per the rehab director occupational therapist --Hypercalcemia With high-normal PTH Seems to be primary hyperparathyroidism IV fluids management as per primary team Plan: Given the significant deterioration in the respiratory status leading to intubation After the next best step would be to have bronchoscopy with BAL bilateral lower lobes along with EBUS of station 7 as well as transbronchial biopsy if possible. I was able to go down on PEEP to 8 and FiO2 50%. We will titrate down the PEEP as much as possible gradually. Patient does have very strong family history of autoimmune disease with rheumatoid arthritis in mother, connective tissue disease in maternal uncle. Sarcoidosis, rheumatoid arthritis related disease as well as connective tissue disease related lung disease is in the differential. I am going to order autoimmune work-up along with PIO level. Recommend holding off on steroids for the time being to be have the procedure done always it might give us false negative testing. Patient does VAP as well. EVALI is also in the differential. Agree with broad-spectrum antibiotics including coverage for Legionella with levofloxacin. Recommend HIV testing. The likelihood of Covid 19 is low given the patient is negative x3 with PCR testing. Patient's calcium was on the higher side with normal albumin. PTH is high- normal. This goes towards primary hyperparathyroidism. I did speak with the patient's mother Mrs. Wilson on the phone. She is an RN herself. I explained the current condition of the patient, the recommendation of having bronchoscopy with EBUS as well as risk and benefits associated with it. I did give her the contact information to give us a call back with any questions or queries that she and her family have. All questions inquiries of her were answered in depth. Plan would be to have a procedure done around 2:15 PM if the family is agreeable to it. Recommend holding steroids and heparin the procedure is done. Case was discussed with RN and Dr. Levy Please note the above document was generated using voice recognition software. It may contain grammatical, syntax or spelling errors.Any formal questions or concerns about the content, text or information contained within the body of this dictation should be directly addressed to the provider for clarification. (2) ARDS (adult respiratory distress syndrome): (3) Pneumonia: Laterality: bilateral Lung location: lower lobe of lung Pneumonia type: due to unspecified organism Qualified Code(s): J18.9 - Pneumonia, unspecified organism (4) LAD (lymphadenopathy), mediastinal: (5) Hypercalcemia: (6) Hyperparathyroidism: History of Present Illness Attending Physician: Tay Levy DO History of Present Illness 20-year-old male admitted to the hospital on 01/11/2021 because of shortness of breath, subjective fever which is associated with nausea and vomiting. No d iarrhea. Cough was dry and nonproductive. Pulmonary consulted because of worsening chest x-ray and requirement of oxygen Overnight patient required significant oxygen and was in respiratory stress whi ch created to intubation Early in the morning patient also got a dose of Tocilizumab. He got 2 doses of dexamethasone so far. He is on broad-spectrum antibiotics since coming to the hospital. At the time of examination patient was intubated, he was sedated with 40 of propofol and fentanyl He was breathing with vent. He was on PEEP of 12 and 40% saturating 96% I went down on PEEP to 8 and increased FiO2 to 50% at the end of examination patient was saturating 97% with the setting. As per mother, both his parents are healthy. No exposure to Covid that they know of. Nobody in the family including the patient is vaccinated for Covid. 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 Does have chickens outside, patient does not have any exposure to the chickens. Have horses as well. Please make note history was obtained from H&P, ER note as well as talking with patient's mother Allergies Allergy/AdvReac Type Severity Reaction Status Date / Time codeine Allergy Unknown Unknown Unverified 01/11/21 13:30 Home Medications Medication Instructions Recorded Confirmed Type No Known Home Medications 01/11/21 01/11/21 History Patient History Medical History Patient denies medical problems Family History (Updated 01/11/21 @ 18:07 by SEAN Tariq) Grandmother Thyroid disease Mom thinks she may have had some parathyroid issue as well but can't remember Other Dyslipidemia Hypertension Social History (Updated 01/11/21 @ 17:35 by SEAN Tariq) Smoking Status: Never smoker Tobacco Type: E-cigarettes / Vaping Cigarettes Per Day: tried for a few months and quit- quit 4-5 months ago (~Aug 2020); Hx Alcohol Use: No Hx Substance Use: No Preferred Language: [place] Communication Ability: Effective Aluminum Boat Inspector Required: No Beliefs That Will Affect Care: None marital status: Single Current Living Situation: Family Current Living Situation Comment: Mother, father and sister current occupational status: employed Other Information That Helps Us Care for You: No Feels Safe at Home: Yes Safety Concerns: Feels Safe At This Time Assistive Devices: None Review of Systems Review of Systems: Unobtainable due to endotracheal tube Physical Exam Physical Exam: Constitutional: No acute distress HEENT: PERRLA, positive ETT Respiratory system: Decreased air entry bilaterally, no wheeze, no rhonchi, positive crackles bilateral lower lobes CVS: S1-S2 positive, no murmurs or gallops, bradycardia Abdomen: Soft, nontender, nondistended, positive bowel sounds x4 Extremities: +2 pulses bilaterally radialis/ dorsalis pedis, no cyanosis, no edema Neuro: RASS -1, positive corneal, positive gag, positive pupillary Psych: Unable to assess G/U: Positive Marquis Skin: no rashes, warm and dry Lymphatic: no cervical or axillary lymphadenopathy Results & Data Results & Data ([facility]) Vital Signs (Past 12 Hours) Vital Signs Temp Pulse Pulse Resp BP BP Pulse Ox 01/13/21 07:48 88 24 92 01/13/21 06:03 57 L 137/76 96 01/13/21 06:00 55 L 96 01/13/21 05:33 55 L 121/59 L 95 01/13/21 05:31 83 20 94 01/13/21 05:03 66 130/63 94 01/13/21 05:00 55 L 96 01/13/21 04:33 57 L 124/64 96 01/13/21 04:03 58 L 127/59 L 96 01/13/21 04:00 61 96 01/13/21 03:33 66 125/62 95 01/13/21 03:06 67 96 01/13/21 01:50 96 H 20 97 01/13/21 00:41 99 01/12/21 23:50 115 H 24 94 01/12/21 23:01 37.2 C 111 H 52 H 150/93 H 86 L 01/12/21 20:56 92 01/12/21 20:15 89 L 01/13/21 03:04 01/13/21 03:04 PG Care Time/CCT Total # of Minutes Spent Total Time Spent with Patient: Total time spent is greater than 50% in coordination of care (as documented) at patient's floor/unit and/or counseling patient: Coding Level of Care Code 78526 Inpt Consult Level 5 Diagnoses Acute respiratory failure with hypoxia J96.01 ARDS (adult respiratory distress syndrome) J80 Pneumonia J18.9 Laterality: bilateral Lung location: lower lobe of lung Pneumonia type: due to unspecified organism LAD (lymphadenopathy), mediastinal R59.0 Hypercalcemia E83.52 Hyperparathyroidism E21.3
[2021-01-13] MEDS ORDERED: predniSONE 20 MG TAB PO SCH (10:00)
--- NOTE | 2021-01-13 10:35 | Discharge Summary ---
Date of Service January 13, 2021 Admission HPI Per Admitting Provider 20 YOM with no significant medical history. Patient not on any medications at home. Patient comes to the emergency room today for not feeling well since (Jan 08, 2021). He started having fevers on associated with nausea and GI upset and vomitting. He denies that he had any diarrhea. This progressed to a dry non-productive cough, which at times he felt short of breath after. He denies not feeling much shortness of breath associated with his symptoms. The feeling of hot and cold has remained constant and he can not notice a cyclical change. He reports maybe one day of mild myalgias. He works as a commercial construction estimator, no-one at work has been feeling ill and he was last there on Tuesday, where he left early. He lives at home with his parents- all of which have not been feeling ill and also have not been vaccinated for COVID-19. The patient does have dogs, cats, horses at home and water at home is supplied via a well. He has not removed any ticks from the dogs in a while, but reports he had a tick crawling on him sometime last week that was not embedded. Patient stopped vaping over 4-5 months ago, and does not smoke or endorse other drugs. In the EMD he was noted to be tachycardic, tachypneic, and hypoxic to 83% noted on arrival. He was placed on NC and quickly recovered. He had routine labs drawn, to include blood cultures and COVID-19 test. CXR done. ECG performed, was given 500ml bolus of saline followed by 0.9% Saline at 125ml/hour. His CXR was notable for bilateral mid lower lung zone patchy densities. His blood work was notable for a leukocytosis with elevated neutrophils and lymphopenia as well as hyperglycemia and hypercalcemia (12.4). He has not voided since being in the EMD. Will provide another bolus of crystalloid and follow hemodynamics. Principal Diagnosis Acute hypoxic respiratory failure, unclear etiology Discharge Exam Constitutional well developed, well nourished, + ill appearing and + mechanically ventilated; no acute distress Neck trachea midline, no thyromegaly Respiratory symmetric chest movement (ventilated) Auscultation: + crackles (diffuse); no rales, no rhonchi and no wheezes Cardiovascular Rate/Rhythm: regular rate and regular rhythm Heart Sounds: normal S1 and normal S2; no murmur Vessels: no JVD Extremities: normal capillary refill; no edema Gastrointestinal (Abdomen) normal bowel sounds, soft, nontender, no hepatosplenomegaly Musculoskeletal no cyanosis or clubbing, extremities motor strength 5/5 Skin no rashes, warm and dry Neurologic CN's II-XI intact bilaterally and moves all extremities; no focal motor deficits and + not awake Lymphatic no cervical or axillary lymphadenopathy Discharge Data Allergies Allergy/AdvReac Type Severity Reaction Status Date / Time codeine Allergy Unknown Unknown Unverified 01/11/21 13:30 Consultations 01/11/21 15:15 ED Decision to Admit Stat 01/12/21 15:42 Consult Pulmonology Routine 01/13/21 00:39 Consult [employer] Routine Ordered Studies 01/12/21 15:44 CT chest diagnostic w con Urgent 01/13/21 02:01 US point of care ultrasound Stat Hospital Course (1) Acute respiratory failure with hypoxia: diffuse infiltrates and consolidation seen on CXR and CT chest rapidly progressed from low flow nasal canula on 01/12 in the morning to high flow oxymask then intubation over night 01/12, data entry representative 01/13 appears to have ARDS at this point PEEP is 5, FiO2 60%, TV 380, RR 20, oxygenating well on these settings treating bacterial infection with Levaquin and Zosyn, procalcitonin down to 2 from 3 COVID negative x 2 sets Biofire panel negative for other viral etiologies, MRSA swab negative, Legionella pending, mycoplasma pending differential could be autoimmune, sarcoidosis, vaping lung injury (he claims he quit 4-5 months ago) will transfer to [facility] for further work up, will likely need bronchoscopy at this time, KALEB panel was drawn but is pending, HIV was ordered and is pending of note, he did receive a dose of Dexamethasone on admission in the ED and then again this morning he got dexamethasone 6mg, no further steroids planned until after bronchoscopy he also received Tocilizumab data entry representative 01/13 when it was suspected that he might have COVID due to rapidly deteriorating condition (2) Pneumonia: Bilateral patchy infiltrations. CT chest with more detail, shows bilateral pneumonia, consolidations CRP markedly elevated in 30's, procalcitonin up at 3 CRP down to 25, procalcitonin is 2 Biofire panel is NEGATIVE as well as two separate COVID tests Flu A/B negative MRSA swab negative legionella, mycoplasma, RSV pending he does not smoke, he admits to vaping a long time ago, swears he quit 4-5 months ago WBC down very slightly to 13k from 18k on admission, low grade temperature (3) Sepsis: SIRS- 3; qSOFA- 1 no growth on blood cultures continue Levaquin and Zosyn (4) Hypercalcemia: 12.4 on admission, down to 11.4 on 01/12 and now 10.4 on 01/13, only treatment has been IV fluids ionized Ca was 1.5 on admission PTH inappropriately high at 73, Vitamin D low at 14 could be Sarcoidosis? TSH low normal PIO level sent out, pending (5) Hypovolemia: As above- clinically hypovolemia with increase in insensible losses with tachypnea, fevers - continue isotonic volume resuscitation - BP stable, tachycardic making more urine (6) Elevated glucose: Likely stress response to acute illness - denies history of such - Follow trend - Notify if >180 Total Time Total Time Spent Total Time Spent (In Minutes): 45 minutes Total Time Includes: Examination of the Patient, Discharge Planning, Medication Reconciliation and Communication With Other Providers (Dr. Acuna, spoke with Dr. Glynn at [place]) Discharge Plan Discharge Items Patient Disposition: Transfer Acute Care Hospital Reason For Visit: PNEUMONIA, PUI COVID 19 Discharge Diagnosis: Acute hypoxic respiratory failure Diffuse bilateral pulmonary infiltrates, hilar adenopathy Hypercalcemia Condition on Discharge: Critical Activity: Per Instructions section Non-emergency contact: Primary Care Provider Call non-emergency contact if: you have any medication questions Follow-up/Referrals: Chris Landon PA-C [Primary Care Provider] - Diet: Nothing by Mouth Addtl Attending Provider Instructions: Current medications: Zosyn, Levaquin, Fentanyl drip, Propofol drip PEEP 5, FiO2 60% Pending Studies at Discharge: Yes Studies:: autoimmune panel, HIV Stand-Alone Forms: My [facility] Skilled Items Patient informed of condition?: Yes DNR: No Discharge Level of Care: Other Communicable Disease: No Discharge Prognosis: Stable Lines: Peripheral IV Urinary Catheter: Yes Medications and DC Order Prescriptions: No Action No Known Home Medications RF: 0 Discharge Orders: Discharge Order (Routine); Ordered 01/13/21 Ordered By: Tay Levy Admission Data Admit Date/Time: 01/11/21 17:17 Attending Provider: Tay Levy Admit Provider: Wero Meíja Primary Care Provider: Chris Landon Other Providers: Wero Mejía ; Gerber Ledbetter ; Kadeem Mcgrath Coding Level of Care Code D/C Day Management >30 mins Diagnoses Acute respiratory failure with hypoxia J96.01 Pneumonia J18.9 Pneumonia type: due to unspecified organism Laterality: bilateral Lung location: lower lobe of lung Sepsis A41.9 Sepsis type: sepsis due to unspecified organism Sepsis acute organ dysfunction status: without acute organ dysfunction Hypercalcemia E83.52 Hypovolemia E86.1 Elevated glucose R73.09
--- NOTE | 2021-01-13 10:36 | XRay Report ---
XR chest 1V portable CLINICAL HISTORY: Respiratory failure COMPARISON STUDY: 01/12/2021 FINDINGS: The cardiac and mediastinal contours remain stable. There are extensive bilateral pulmonary airspace opacities. There has been interval placement of an enteric tube which passes into the stoma ch. There is been placement of an endotracheal tube positioned 3 cm above the sabrina. Immediately inf erior to the endotracheal tube projected over the distal trachea/right mainstem bronchus orifice is a nonspecific 2 cm linear opacity. Diagnostic considerations include foreign body versus overlying art ifact. A repeat chest x-ray is recommended.[ IMPRESSION: 1. Persistent bilateral pulmonary airspace opacities 2. Interval placement of an enteric tube which passes into the stomach 3. Interval placement of an endotracheal tube terminating 3 cm above the sabrina 4. Nonspecific 2 cm linear opacity projected over the distal trachea/right mainstem bronchus orifice. Diagnostic considerations include foreign body versus overlying artifact. A repeat chest x-ray is re commended. ACT 112: Negative or not required by law. Electronically signed by: Cory Ansari M.D. 01/13/2021 10:35 AM
[2021-01-13] MEDS ORDERED: MIDAZOLAM BOLUS FROM BAG IV PRN (11:56)
[2021-01-13] MEDS ORDERED: MIDAZOLAM HCL 125 MG/250 ML BAG IV SCH (12:00)
--- NOTE | 2021-01-13 14:38 | XCELERA ---
[id number] \\[id number]
--- NOTE | 2021-01-13 15:22 | Electrocardiogram Report ---
Test Reason : Blood Pressure : / mmHG Vent. Rate : 053 BPM Atrial Rate : 053 BPM P-R Int : 144 ms QRS Dur : 096 ms QT Int : 464 ms P-R-T Axes : 025 069 023 degrees QTc Int : 435 ms Sinus bradycardia with sinus arrhythmia RSR' or QR pattern in V1 suggests right ventricular conduction delay Otherwise normal ECG When compared with ECG of 11-JAN-2021 13:25, Vent. rate has decreased BY 62 BPM Nonspecific T wave abnormality no longer evident in Anterior leads Confirmed by Maycol Pace ([id number]) on 01/13/2021 3:22:13 PM Referred By: REFERRED SELF Confirmed By:Maycol Pace
[2021-01-16] MEDS ORDERED: predniSONE 20 MG TAB PO SCH (09:00)
[2021-01-16 12:47] LABS: Angiotensin Converting Enzyme 19 U/L (9-67); Anti-Centromere Ab <1.0 NEG AI (<1.0 NEG); Anti-Glom Basement Antibody <1.0 AI (<1.0); Anti-Neutrophil Antibody NONE DETECTED (NONE DETECTED); Anti-SS-A <1.0 NEG AI (<1.0 NEG); Anti-SS-B <1.0 NEG AI (<1.0 NEG); Anti-dsDNA Recombinant <1 IU/mL; Cyclic Citrullinated Pep IgG <16 UNITS; JO 1 Antibody <1.0 NEG AI (<1.0 NEG); Proteinase-3 Ab <1.0 AI; RNP Antibody <1.0 NEG AI (<1.0 NEG); Rheumatoid Factor <14 IU/mL (<14); Scleroderma Anti Scl-70 Ab <1.0 NEG AI (<1.0 NEG); Sm Antibody <1.0 NEG AI (<1.0 NEG)
== END 2021-01-13 17:55 | disposition short-term general hospital (02) | DRG 208 ==
LOC: ED 11:25 → SUATTDRO 17:17 → 2S 17:17 → 2E 01-13 01:25